=== PATIENT | female | born 2000 | race Caucasian/White ===

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

== ENCOUNTER 2024-02-11 11:18 | Inpatient (IN) ==
--- NOTE | 2024-02-11 12:08 | Emergency Department Note ---
Impression & Plan Suicide attempt by multiple drug overdose, Intentional overdose of selective serotonin reuptake inhibitor (SSRI) ED Provider Note NAME: PEG HUANG AGE: 24 SEX: F : 2000 ARRIVES VIA: Ambulance INFORMANT: Patient, ED PROVIDER(S): Adán Kennedy MD CHIEF COMPLAINT: Intentional overdose HPI: This a 24-year-old female with history of bipolar disorder presenting for intentional overdose. Patient states she got overwhelmed with final/school. She states she took unknown amount of Lexapro, Wellbutrin and drank Visine. She think she may have taken around 20 pills. Unclear whether she means 20 each over 20 in total, she is does not clarify. She is somewhat staring into space at this time. She is maintaining her airway. She states that she felt very impulsive into this. She does not seek inpatient care at this time for psychiatric needs. ROS: See above HPI for pertinent positives & negatives. A total of 10 systems reviewed and were otherwise negative. PAST MEDICAL HISTORY: See Below PAST SURGICAL HISTORY: See Below FAMILY HISTORY: See Below SOCIAL HISTORY: See Below HOME MEDICATIONS: See Below ALLERGIES: See Below VITALS: See Below PHYSICAL EXAMINATION: General: Easily directable Head: Normocephalic and atraumatic Eyes: Normal inspection, extraocular muscles intact Ear, nose, throat: Normal external exam Neck: Normal range of motion Respiratory: lungs clear to auscultation bilaterally Cardiovascular: Regular rate/rhythm, no murmur GI: soft, nontender, no guarding or rebound Extremities: nontender, moves all extremities Neuro: The patient awake and alert, appropriately conversive, no focal deficits, symmetric faces, no hyperreflexia Skin: Warm, dry, and intact MEDICAL DECISION MAKING: This is a 24-year-old female with history of bipolar disorder presenting for intentional overdose. Will observe closely for signs of seizure from Wellbutrin or serotonin syndrome from Lexapro. Will watch closely for advised ingestion as well. -Currently getting blood work, EKG, coingestions -Patient will require involuntary psychiatric admission if she does not voluntarily seek care -Discussed with poison control, patient will require 24-hour observation due to seizure risk of Wellbutrin -CG independently interpreted by me with sinus tachycardia, rate of 142, normal axis, normal TX, normal QRS, normal QTc, no ST segment elevations consistent with STEMI criteria -Patient blood work shows a slight leukocytosis to 13.03 otherwise plate count 570, slightly elevated. No significant other abnormalities. -Patient reassessed, is more diaphoretic but does not have signs of hyperreflexia. Will give IV Valium this time. At this time does not appear consistent with serotonin syndrome overtly. Will continue to watch closely. -Patient required 24+ [facility] Dr. Brush directly Differential diagnosis: Serotonin syndrome, Wellbutrin overdose, seizure, Independent History obtained from: Father Diagnostics interpreted by me: ECG: See above Cardiac Monitoring: An order was placed for continuous cardiac monitoring. The monitor shows a rate of 121 with sinus tachycardia rhythm. Critical Care Note: I have personally spent 35 minutes of critical care time in the direct management of this patient. This includes bedside care, interpretation of diagnostic studies, and testing, discussion with consultants, patient, and family members, and other required patient management activities. This 35 minutes is in excess of all separately billable procedures. Past Med/Surg History Problem List (Updated 02/11/24 @ 14:18 by Adán Kennedy MD) Intentional overdose of selective serotonin reuptake inhibitor (SSRI) (Acute) Suicide attempt by multiple drug overdose (Acute) Acne (Acute) Nausea (Chronic) Panic attacks (Chronic) Surgical History (Updated 12/03/18 @ 15:48 by Anne Ryan) S/P adenoidectomy Family History Grandfather (Paternal) Colorectal cancer Grandfather (Maternal) Factor V Leiden mutation Family/Other Breast cancer MATERNAL GREAT GRANDMOTHER Other Lung cancer Denies family history of Ovarian cancer Uterine cancer Social History (Updated 09/01/20 @ 14:17 by Peggy Gardiner MD) Smoking Status: Never smoker Do You Dip or Chew Tobacco: No; Hx Alcohol Use: No Hx Substance Use: No Preferred Language: Luxembourgish marital status: Single current occupational status: student current occupation: [employer] Feels Safe at Home: Yes Physical Activity Frequency: 3-4 Times per Week Physical Activity Frequency Comment: walks, swims, works as lifegard in summer Allergies Allergies Allergy/AdvReac Type Severity Reaction Status Date / Time No Known Drug Allergies Allergy Verified 02/15/23 13:58 kiwi AdvReac Verified 02/15/23 13:58 pinekathile AdvReac Verified 02/15/23 13:58 Home Meds Home Medications Medication Instructions Recorded Confirmed escitalopram oxalate 10 mg tablet 10 mg PO DAILY 10/21/21 02/15/23 (Lexapro) bupropion HCl [Wellbutrin SR] PO 02/15/23 02/15/23 nitrofurantoin macrocrystal PO UTI 02/15/23 02/15/23 [nitrofurantoin] Previous Rx's Medication Instructions Recorded norethindrone acetate 1.5 1 tab PO DAILY #63 tabs 04/27/23 mg-ethinyl estradiol 30 mcg tablet (Junel) Results & Data (ED) Vital Signs Vital Signs - 24 hr 02/11/24 11:29 02/11/24 11:29 02/11/24 11:29 Temperature 36.8 C 36.8 C Temperature Source Oral Oral Pulse Rate 147 H Pulse Rate [Apical] 147 H Respiratory Rate 19 19 Respiratory Effort / Characteristics Respiratory Depth Blood Pressure 134/79 Blood Pressure [Left Arm] 134/79 Blood Pressure Mean 97 Blood Pressure Mean [Left Arm] 97 Blood Pressure Position [Left Arm] Pulse Oximetry 98 98 98 Oxygen Delivery Method Room Air Room Air Room Air Sepsis Recent Fever Within 48 Hours No Sepsis New/Unexplained Change in Mental Status N/A Sepsis Action Taken by Nursing No Action Required 02/11/24 11:38 02/11/24 12:11 02/11/24 13:13 Temperature Temperature Source Pulse Rate 143 H 124 H Pulse Rate [Apical] 121 H Respiratory Rate 19 16 Respiratory Effort / Characteristics Non-Labored Respiratory Depth Normal Blood Pressure Blood Pressure [Left Arm] 111/71 Blood Pressure Mean Blood Pressure Mean [Left Arm] 84 Blood Pressure Position [Left Arm] Sitting Pulse Oximetry 96 94 Oxygen Delivery Method Room Air Room Air Sepsis Recent Fever Within 48 Hours Sepsis New/Unexplained Change in Mental Status Sepsis Action Taken by Nursing 02/11/24 13:37 Temperature 36.9 C Temperature Source Oral Pulse Rate Pulse Rate [Apical] Respiratory Rate Respiratory Effort / Characteristics Respiratory Depth Blood Pressure Blood Pressure [Left Arm] Blood Pressure Mean Blood Pressure Mean [Left Arm] Blood Pressure Position [Left Arm] Pulse Oximetry Oxygen Delivery Method Sepsis Recent Fever Within 48 Hours Sepsis New/Unexplained Change in Mental Status Sepsis Action Taken by Nursing Laboratory Data 02/11/24 11:34 12/15/24 11:34 Lab Results 02/11/24 02/11/24 Range/Units 11:34 Unknown WBC 13.03 H (4.8-10.8) K/ul RBC 4.75 (4.20-5.40) M/uL Hgb 13.6 (12.0-16.0) g/dl Hct 42.1 (37.0-47.0) % MCV 88.6 (80.0-100.0) fL MCH 28.6 (25.0-34.0) pg MCHC 32.3 (32.0-36.0) g/dL RDW Std Deviation 40.5 (36.4-46.3) fL RDW Coeff of Mahamed 12.3 (11.5-14.5) % Plt Count 578 H (130-400) K/uL MPV 9.4 (9.4-12.4) fL Immature Gran % (Auto) 0.8 % Neut % (Auto) 66.2 % Lymph % (Auto) 27.1 % Coleman % (Auto) 4.8 % Eos % (Auto) 0.8 % Baso % (Auto) 0.3 % Neut # (Auto) 8.63 H (1.40-6.50) K/uL Lymph # (Auto) 3.53 H (1.20-3.40) K/uL Coleman # (Auto) 0.62 H (0.11-0.59) K/uL Eos # (Auto) 0.10 (0.00-0.50) K/uL Baso # (Auto) 0.04 (0.00-0.20) K/uL Immature Gran # (Auto) 0.11 (0.01-0.20) K/uL Sodium 137 (136-145) mmol/L Potassium 3.6 (3.5-5.1) mmol/L Chloride 102 (98-107) mmol/L Carbon Dioxide 19 L (21-32) mmol/L Anion Gap 16 H (3-11) BUN 9 (6-23) mg/dl Creatinine 0.77 (0.6-1.2) mg/dl Est Cr Clr Drug Dosing 165.6 ml/min eGFR 111.09 BUN/Creatinine Ratio 11.7 (10-20) Glucose 166 H (70-99(Fasting)) mg/dl Calcium 9.1 (8.6-10.3) mg/dl Magnesium 2.0 (1.7-2.4) mg/dl Total Bilirubin 0.2 (0.2-1.0) mg/dl AST 15 (13-39) U/L ALT 17 (7-52) U/L Alkaline Phosphatase 83 (34-104) U/L Total Protein 8.2 (6.0-8.3) gm/dl Albumin 4.5 (3.4-5.0) gm/dl Globulin 3.7 (2.5-4.0) gm/dl Albumin/Globulin Ratio 1.2 (0.9-2) Lipase 17 (11-82) U/L HCG, Qual Negative (Negative) Salicylates < 3.0 L (3.0-30) mg/dl Acetaminophen < 3 L (10-30) ug/ml Ethyl Alcohol mg/dL < 10.0 (<10.0) mg/dl SARS-CoV-2, RNA, NAAT NEGATIVE (NEGATIVE) Discharge Plan Visit Data Chief Complaint: Overdose (Intentional) Stated Complaint: OVERDOSE ED Provider: Adán Kennedy Discharge Problem: Suicide attempt by multiple drug overdose, Intentional overdose of selective serotonin reuptake inhibitor (SSRI) Forms Stand Alone Forms: My [facility], Suicide Prevention Resources Prescriptions Prescriptions: No Action norethindrone ac-eth estradiol [June (21)] 1.5-30 mg-mcg tablet 1 tab PO DAILY Qty: 63 3RF escitalopram oxalate [Lexapro] 10 mg tablet 10 mg PO DAILY bupropion HCl [Wellbutrin SR] PO nitrofurantoin macrocrystal [nitrofurantoin] PO Referrals Referrals: Bo Baptiste MD [Outside Practitioners] -
[2024-02-11 12:10] LABS: Basophils # (auto) 0.04 K/uL (0.00-0.20); Basophils % (auto) 0.3 %; Eosinophils % (auto) 0.8 %; Hematocrit (blood only) 42.1 % (37.0-47.0); Hemoglobin 13.6 g/dl (12.0-16.0); Immature Granulocytes # (auto) 0.11 K/uL (0.01-0.20); Immature Granulocytes % (auto) 0.8 %; Lymphocytes # (auto) 3.53 K/uL (1.20-3.40); Lymphocytes % (auto) 27.1 %; Mean Corpuscular Hemoglobin 28.6 pg (25.0-34.0); Mean Corpuscular Hgb Conc 32.3 g/dL (32.0-36.0); Mean Corpuscular Volume 88.6 fL (80.0-100.0); Mean Platelet Volume 9.4 fL (9.4-12.4); Monocytes # (auto) 0.62 K/uL (0.11-0.59); Monocytes % (auto) 4.8 %; Neutrophils # (auto) 8.63 K/uL (1.40-6.50); Neutrophils % (auto) 66.2 %; Platelet Count 578 K/uL (130-400); RDW Coefficient of Variation 12.3 % (11.5-14.5); RDW Standard Deviation 40.5 fL (36.4-46.3); Red Blood Count 4.75 M/uL (4.20-5.40); White Blood Count 13.03 K/ul (4.8-10.8)
[2024-02-11 12:21] LABS: Albumin Level 4.5 gm/dl (3.4-5.0); Bilirubin,Total 0.2 mg/dl (0.2-1.0); Calcium 9.1 mg/dl (8.6-10.3); Potassium 3.6 mmol/L (3.5-5.1)
[2024-02-11 12:27] LABS: Acetaminophen < 3 ug/ml (10-30); Albumin Globulin Ratio 1.2 (0.9-2); BUN Creatinine Ratio 11.7 (10-20); Creatinine Clr Calc Pharmacy 165.6 ml/min; Globulin 3.7 gm/dl (2.5-4.0); Pregnancy Test, Serum Negative (Negative); Salicylate < 3.0 mg/dl (3.0-30); Total Protein 8.2 gm/dl (6.0-8.3)
--- OUTSIDE RECORDS SUMMARY | 2024-02-11 13:52 | External Medical Summary | Summary of Care ---
Author Name Unknown Organization [facility] Address [address] [place] [address] Phone [phone] Care Team Providers Care Supervisor Paper Testing Name Role Phone Gisselle Eng Ana DO Primary Care Provider Encounter Details Date Type Department Care Team (Late st Contact Info) Description 10/02/2023 Orders Only Outcomes Research Department [address] [place] [address] Ana Hicks CHRA [facility] Other*[id number] Allergies Active Allergy Reactions Criticality Noted Date Comments Food (See Comments) 09/15/2016 pineapple Kiwi Extract Other (Please comment) 05/16/2023 Pt reports an itchy sensation in the back of her tongue and mouth documented as of this encounter (statuses as of 10/02/2023) Medications Medication Sig Dispensed Refills Start Date End Date Status XULANE 150-35 MCG/24HR patch 10/13/2017 Active Ketoconazole 2 % External Shampoo (Nizoral)Indication s:Seborrheic dermatitis of scalp Apply to scalp every other day x 1-2 weeks and then 2-3 times per week for maintenance; leave on 3-5 min before rinsing 120 mL 3 03/01/2022 Active Additional Information Patient not taking.Reported on 02/12/2023 Escitalopram Oxalate 20 MG Oral Tablet (Lexapro) Take 1 Tablet by mouth in the morning. 90 Tablet 2 01/16/2023 Active buPROPion HCl ER (XL) 150 MG Oral Tablet Extended Release 24 Hour (Wellbutrin XL)Indications:Mode rate episode of recurrent major depressive disorder (HCC) Take 1 Tablet by mouth in the morning. 90 Tablet 3 02/06/2023 Active Norethindrone Acet-Ethinyl Est 1-20 MG-MCG Oral Tablet (03/18) Take 1 Tablet by mouth in the morning. Active documented as of this encounter (statuses as of 10/02/2023) Active Problems Problem Noted Date Diagnosed Date Non-suicidal self-harm 01/13/2023 Moderate episode of recurrent major depressive d isorder 12/20/2022 JUAN (generalized anxiety disorder) 09/01/2021 documented as of this encounter (statuses as of 10/02/2023) Resolved Problems Problem Noted Date Diagnosed Date Resolved Date Acne vulgaris 09/15/2016 03/06/2020 Overweight, pediatric, BMI 8 5.0-94.9 percentile for age 1012/06/2014 03/06/2020 Obesity, pediatric, BMI 95th to 98th percentile for age 0406/27/2011 12/06/2014 Genu valgum 09/30/2003 03/06/2020 Chronic rhinitis 06/19/2003 03/06/2020 Tibial torsion 01/31/2003 03/06/2020 Umbilical hernia 03/06/2020 documented as of this encounter (statuses as of 10/02/2023) Immunizations Name Administration Dates Next Due DTaP Dipth/Tet/Acell Pertussis (Infanrix), Peds 10/27/2006 H1N1 2009 Influenza, Intranasal 03/12/2009,01/17 HPV Vaccine, 4-Valent 07/16/2013,03/26/2013,12/28 IPV - Polio Virus Vaccine (Inact) 10/27/2006 Influenza, Whole Virus 01/10/2020 MMR - Measles/Mumps/Rubella Vaccine 10/27/2006 Meningococcal Conjugate Vacc ine (Menactra/Menveo) 12/21/2017,01/11/2013 Seasonal Influenza Intranasal 03/08/2013 ,11/25/2011,12/24/2010,12/18 Seasonal Influenza Virus Vac cine, Unspecified Formulation 01/10/2020 Seasonal Influenza, PF, 6 M & above, IM , (FluLaval or Fluzone) 01/11/2021,12/19/2018,12/21/2017,12/14 Seasonal Influenza, Quad, Na omi (Flumist) 12/03/2014 Seasonal Influenza, Quadriva lent, No Preserve, IM 12/09/2015 Seasonal Influenza, Split, I IV3, With Preserve, Inj 12/15/2008,12/05/2007,01/01/2007,01/12 TDAP (age 10 and older)(Boostrix) 02/13/2019 TDAP, Age 7 and older, IM (Adacel) 07/03/2012 Varicella Vaccine (Chicken Pox) 10/27/2006 documented as of this encounter Social History Tobacco Use Types Packs/Day Years Used Date Smoking Tobacco: Never Smokeless Tobacco: Never Alcohol Use Standard Drinks/Week Comments No 0 (1 standard drink = 0.6 oz pur e alcohol) PHQ-2 Answer Date Recorded PHQ Adult Total Score 9 07/22/2020 [facility] - Occupational Stress Questionnaire Answer Date Recorded Do you feel stress - tense, restless, nervous, or anxious, or unable to sleep at night because your mind is troubled all the time - these days? Rather much 03/06/2020 Exercise Vital Sign Answer Date Recorde d On average, how many days pe r week do you engage in moderate to strenuous exercise (like a brisk walk)? 5 days 03/06/2020 On average, how many minutes do you engage in exercise at this level? 60 min 03/06/2020 Hunger Vital Sign Answer Date Recorded Within the past 12 months, y ou worried that your food would run out before you got the money to buy more. Never true 01/13/20 23 Within the past 12 months, t he food you bought just didn't last and you didn't have money to get more. Never true 01/12/2023 Childcare Answer Date Recorded Do you feel overwhelmed with taking care of a child, family member or friend? No 01/12/2023 Does your family need help f inding childcare? (Household - for ages 0-17 years) Not on file 01/12/2023 Clothing Answer Date Recorded Have you been unable to get clothing when it was really needed? Yes 01/12/2023 Is your family able to get c lothes or diapers when needed? (Household - for ages 0-17 years) Not on file 01/12/2023 Personal Safety Answer Date Recorded Do you feel unsafe or have concerns for your saf ety? No 01/12/2023 Do you have concerns for you r family's safety? (Household - for ages 0-17 years) Not on file 01/12/2023 Utilities Answer Date Recorded Do you have trouble paying y our heating, water, or electric bill? No 01/12/2023 Is your family able to pay t he heat, water, or electric bill? (Household - for ages 0-17 years) Not on file 01/12/2023 Does your family have access to good internet? (Household - for ages 0-17 years) Not on file 01/12/2023 Employment Status Answer Date Recorded Are you unemployed or without regular income? No 01/12/2023 Does the household have a re gular source of income? (Household - for ages 0-17 years) Not on file 01/12/2023 Social Connections Answer Date Recorded How often do you feel lonely or isolated from th ose around you? Often 01/12/2023 Financial Resource Strain Answer Date R ecorded Do you have any trouble payi ng for your medications, or do you think you might in the future? No 01/12/2023 Does your family have troubl e paying for medicine? (Household - for ages 0-17 years) Not on file 01/12/2023 Transportation Needs Answer Date Record ed READ ONLY Do you have troubl e getting a ride to medical visits or work? Sometimes True 01/12/2023 Does your family have a hard time getting a ride to doctors visits? (Household - for ages 0-17 years) Not on file 01/12/2023 Has lack of transportation k ept you from medical appointments, meetings, work, or from getting things needed for daily living? Check all that apply. (Adult - for ages 18 years and over) Not on file 01/12/2023 Do you (or your family) have trouble finding or paying for a ride (transportation)? (Household - for ages 0-17 years) Not on file 01/12/2023 Housing Stability Answer Date Recorded Do you currently live in a s helter or have no steady place to sleep at night? Yes 01/12/2023 READ ONLY Do you think you a re at risk of becoming homeless? No 01/12/2023 Does your family worry about paying for your home or becoming homeless? (Household - for ages 0-17 years) Not on file 1 03/14/2022 Are you homeless or worried that you might be in the future? (Adult - for ages 18 years and over) Not on file Are you (or your family) ya eless or worried that you might be in the future? (Household - for ages 0-17 years) Not on file Food Insecurity Answer Date Recorded Do you need food for this week? No 01/12/2023 Are you able to get enough f ood for your family? (Household - for ages 0-17 years) Not on file 01/12/2023 Does your family need food t his week? (Household - for ages 0-17 years) Not on file 01/12/2023 Do you always have enough fo od for your family? (Household - for ages 0-17 years) Not on file 01/12/2023 Sex and Gender Information Value Date Recorded Sex Assigned at Female 01/12/2023 2:35 AM EST Gender Identity Female 01/12/2023 2:35 AM EST Sexual Orientation Straight 01/12/2023 2: 35 AM EST Job Start Date Occupation Industry Not on file Not on file Not on file documented as of this encounter Plan of Treatment Upcoming Encounters Date Type Department Care Team (Late st Contact Info) Description 11/02/2023 2:15 PM EDT Office Visit Dermatology [facility] [place] [address] [facility] [place] [address] Marco Antonio Velasquez MD [address] [facility] [place] [address] Scheduled Orders Name Type Priority Associated Diagnoses Orde r Schedule MYCODE SUBSEQUENT ADULT Lab Routine [facility] Research Other*[id number] Every 6 Months for 2 Occurrences starting 10/02/2023 until 10/21/2024 Health Maintenance Due Date Last Done Comments HIV Screening 01/29/2016 Hepatitis C Screening 2019 Depression Monitoring 07/22/2021 07/22/2020 Pap Smear 2022 Gonorrhea / Chlamydia Screen 05/04/2022 05/04/2021, 09/01/2020 COVID-19 Vaccine ( season) 2022 12/01/2021, 02/13/2021, 07/29/2020, Additional history exists Influenza Vaccine (FLU shot) (#1) 2023 12/14/2022, 01/11/2021, 01/10/2020, Additional history exists DTaP,Tdap,and Td Vaccines (8 - Td or Tdap) 02/13/2029 02/13/2019, 07/03/2012, 10/27/2006, Additional history exists Hepatitis B Vaccine Completed 05/10/2002, 2001, 2001 HPV (Gardasil) Vaccine Completed 4, 03/26/2013, 01/11/2013 MENINGOCOCCAL (MENACTRA/MENVEO) Completed 12/21/2017, 01/11/2013 Pneumococcal Vaccine: Pediatrics (0 to 5 Years) and At-Risk Patients (6 to 64 Years) Aged Out No longer eligible based on patient's age to complete this topic documented as of this encounter Medical Devices Not on filedocumented as of this encounter Visit Diagnoses Diagnosis [facility] Other*[id number] documented in this encounter Care Teams Supervisor Paper Testing Relationship Specialty Start Date End Date Gisselle Eng DO [address] [place] [address] PCP - General Family Medicine 03/06/20 documented as of this encounter
--- OUTSIDE RECORDS SUMMARY | 2024-02-11 13:52 | External Medical Summary | Summary of Care ---
Author Name Unknown Organization [facility] Address [address] [place] [address] Phone [phone] Care Team Providers Care Carrot Tier Name Role Phone Deric Eng DO Primary Care Provider Reason for Visit * Reason Comments Follow Up Pt here for f/u of H ypertrophic scars, ILK. No new concerns at this time. Encounter Details Date Type Department Care Team (Late st Contact Info) Description 11/30/2023 10:30 AM EDT Office Visit Dermatology [facility] [address] [place] [address] Marco Antonio Velasquez MD [address] [place] [address] Keloid*; Scar Allergies Active Allergy Reactions Criticality Noted Date Comments Food (See Comments) 09/15/2016 pineapple Kiwi Extract Other (Please comment) 05/16/2023 Pt reports an itchy sensation in the back of her tongue and mouth documented as of this encounter (statuses as of 11/30/2023) Medications Medication Sig Dispensed Refills Start Date End Date Status XULANE 150-35 MCG/24HR patch 10/13/2017 Active Ketoconazole 2 % External Shampoo (Nizoral)Indication s:Seborrheic dermatitis of scalp Apply to scalp every other day x 1-2 weeks and then 2-3 times per week for maintenance; leave on 3-5 min before rinsing 120 mL 3 03/01/2022 Active Additional Information Patient not taking.Reported on 02/12/2023 buPROPion HCl ER (XL) 150 MG Oral Tablet Extended Release 24 Hour (Wellbutrin XL)Indications:Mode rate episode of recurrent major depressive disorder (HCC) Take 1 Tablet by mouth in the morning. 90 Tablet 3 02/06/2023 Active Norethindrone Acet-Ethinyl Est 1-20 MG-MCG Oral Tablet (June03/18) Take 1 Tablet by mouth in the morning. Active Escitalopram Oxalate 20 MG Oral Tablet (Lexapro) TAKE 1 TABLET BY MOUTH EVERY DAY IN THE MORNING 30 Tablet 5 10/12/2023 Active Hospital, Clinic, or Other Facility Administered Medication Ordered Dose Route Frequency Start Date End Date Status Triamcinolone Acetonide (Kenalog) 10 MG/ML inj 10 mgIndications:Scar 10 mg LS ONCE 11/30/2023 11/30/2023 Ended documented as of this encounter (statuses as of 11/30/2023) Active Problems Problem Noted Date Diagnosed Date Non-suicidal self-harm 01/13/2023 Moderate episode of recurrent major depressive d isorder 12/20/2022 JUAN (generalized anxiety disorder) 09/01/2021 documented as of this encounter (statuses as of 11/30/2023) Resolved Problems Problem Noted Date Diagnosed Date Resolved Date Acne vulgaris 09/15/2016 03/06/2020 Overweight, pediatric, BMI 8 5.0-94.9 percentile for age 1012/06/2014 03/06/2020 Obesity, pediatric, BMI 95th to 98th percentile for age 0406/27/2011 12/06/2014 Genu valgum 09/30/2003 03/06/2020 Chronic rhinitis 06/19/2003 03/06/2020 Tibial torsion 01/31/2003 03/06/2020 Umbilical hernia 03/06/2020 documented as of this encounter (statuses as of 11/30/2023) Immunizations Name Administration Dates Next Due DTaP Dipth/Tet/Acell Pertussis (Infanrix), Peds 10/27/2006,08/13/2002,2001,05/23,2001 H1N1 2009 Influenza, Intranasal 03/12/2009,01/17 HIB Hep B - HIB Hepatitis B (Comvax) 05/10/2002, 2001 HIB PRP-T, 4 Dose, PF, IM (H iberix, ActHib) 2001 HPV Vaccine, 4-Valent 07/16/2013,03/26/2013,12/28 Hepatitis B, 0-19 yrs 2001 IPV - Polio Virus Vaccine (Inact) 2006,08/13/2002,2001,03/26 Influenza Vaccine, Live, Int ranasal, Trivalent (Flumist) 03/08/2013,11/25/2011,12/24/2010,12/18 Influenza, Whole Virus 01/10/2020 MMR - Measles/Mumps/Rubella Vaccine 10/27/2006,1 2001 Meningococcal Conjugate Vacc ine (Menactra/Menveo) 12/21/2017,01/11/2013 Pneumococcal Conjugate Vacci ne, 7 Valent 2001,2001,2001 Seasonal Influenza Vac., MDV , IM, 0.5 mL (Fluzone) 12/15/2008,12/05/2007,01/01/2007,01/12,12/31/2004 Seasonal Influenza Virus Vac cine, Unspecified Formulation 01/10/2020 Seasonal Influenza, PF, 6 M & above, IM , (FluLaval or Fluzone) 01/11/2021,12/19/2018,12/21/2017,12/14 Seasonal Influenza, Quad, Na omi (Flumist) 12/03/2014 Seasonal Influenza, Quadriva lent, No Preserve, IM 12/09/2015 Seasonal Influenza, Trivalen t, (IIV3), PF, (Fluzone) 12/03/2002,02/01/2002,2001 TDAP (age 10 and older)(Boostrix) 02/13/2019 TDAP, Age 7 and older, IM (Adacel) 07/03/2012 Varicella Vaccine (Chicken Pox) 10/27/2006,02/01 documented as of this encounter Social History Tobacco Use Types Packs/Day Years Used Date Smoking Tobacco: Never Smokeless Tobacco: Never Alcohol Use Standard Drinks/Week Comments No 0 (1 standard drink = 0.6 oz pur e alcohol) PHQ-2 Answer Date Recorded PHQ Adult Total Score 9 07/22/2020 [facility] - Occupational Stress Questionnaire Answer [...] on file documented as of this encounter Progress Notes * Marco Antonio Velasquez MD - 11/30/2023 10:34 AM EDT SUBJECTIVE: Chief Complaint: Chief Complaint Patient presents with Follow Up Pt here for f/u of Hypertrophic scars, ILK. No new concerns at this time. HPI: Arely Worthington is a 23 year old female seen for follow up of keloids. Had good improvement with ILK/PDL OBJECTIVE: GEN: Healthy, alert, no distress, appears oriented, pleasant, and cooperative SKIN: Problem focused exam reveals: Left forearm with approximately 6 linear pink/purple plaques/scars, only 3 are firm ASSESSMENT/PLAN: Hypertrophic scars - here for ILK and PDL Scar treatment Pulse dye laser treatment 595nm today Plan: Pulse dye laser was determined to be the best method for treatment. The procedure, risks, benefits, alternatives and expected outcomes were discussed with the patient and verbal consent was obtained. Time out called. Patient identified, procedure verified, site identified and verified. Patient and staff present in agreement. Eye protection placed. Laser surgery was performed with 595nm PDL using 7mm spot size with 1.5ms pulse width and 7 Joules of energy (no charge for laser, will charge for 6 injections) Procedure - Kenalog Injection -Triamcinolone 10 mg/ml injected intralesionally, total volume injected: 1mL -Patient name and MRN verified. Time out called. Area cleaned with alcohol. Injected lesion with triamcinolone using 30 gauge needle. Patient tolerated procedure well. F/U - PRN Marco Antonio Velasquez MD Ref: SELF[[id number]] NO STRE[address] ADDRESS AVAILABLE None (office) None (fax) PCP: DERIC ENG [address] [place] [address] [phone] documented in this encounter Nursing Notes * Alyx Monreal CMA - 11/30/2023 10:27 AM EDT Chief Complaint Patient presents with Follow Up Pt here for f/u of Hypertrophic scars, ILK. No new concerns at this time. documented in this encounter Plan of Treatment Health Maintenance Due Date Last Done Comments HIV Screening 01/29/2016 Hepatitis C Screening 2019 Depression Monitoring 07/22/2021 07/22/2020 Pap Smear 2022 Gonorrhea / Chlamydia Screen 05/04/2022 05/04/2021, 09/01/2020 COVID-19 Vaccine ( season) 2023 12/01/2021, 02/13/2021, 07/29/2020, Additional history exists Influenza Vaccine (FLU shot) (#1) 2023 12/14/2022, 01/11/2021, 01/10/2020, Additional history exists DTap/Tdap Vaccines (8 - Td or Tdap) 02/13/2029 [...] as of this encounter Visit Diagnoses Diagnosis Keloid- Primary Keloid scar Scar Scar condition and fibrosis of skin documented in this encounter Administered Medications Inactive Administered Medications - up to 3 most recent administrations Medication Order MAR Action Action Date Dose Rate Site Triamcinolone Acetonide (Kenalog) 10 MG/ML inj 10 mg 10 mg, Intralesional, ONCE, On [place] 11/30/23 at 1145, For 1 dose Given 11/30/2023 11:12 AM EDT 10 mg Other-Specify documented in this encounter Care Teams Carrot Tier Relationship Specialty Start Date End Date Deric Eng DO [address] [place] [address] PCP - General Family Medicine 03/06/20 documented as of this encounter
--- OUTSIDE RECORDS SUMMARY | 2024-02-11 13:52 | External Medical Summary | Summary of Care ---
Author Name Unknown Organization [facility] Address [address] [place] [address] Phone [phone] Care Team Providers Care Financial Operations Analyst Name Role Phone Deric Eng DO Primary Care Provider Reason for Visit * Reason Comments Follow Up Hypertrophic scars, 4-6 weeks Encounter Details Date Type Department Care Team (Late st Contact Info) Description 09/25/2023 11:45 AM EDT Office Visit Dermatology [facility] [address] [facility] [place] [address] Marco Antonio Velasquez MD [address] [place] [address] Keloid*; Scar Allergies Active Allergy Reactions Criticality Noted Date Comments Food (See Comments) 09/15/2016 pineapple Kiwi Extract Other (Please comment) 05/16/2023 Pt reports an itchy sensation in the back of her tongue and mouth documented as of this encounter (statuses as of 09/26/2023) Medications Medication Sig Dispensed Refills Start Date [...] Tablet by mouth in the morning. Active Hospital, Clinic, or Other Facility Administered Medication Ordered Dose Route Frequency Start Date End Date Status Triamcinolone Acetonide (Kenalog) 10 MG/ML inj 15 mgIndications:Keloid,Scar 15 mg LS ONCE 09/25/2023 09/25/2023 Ended documented as of this encounter (statuses as of 09/26/2023) Active Problems Problem Noted Date Diagnosed Date Non-suicidal self-harm 01/13/2023 Moderate episode of recurrent major depressive d isorder 12/20/2022 JUAN (generalized anxiety disorder) 09/01/2021 documented as of this encounter (statuses as of 09/26/2023) Resolved Problems Problem Noted Date Diagnosed Date Resolved Date Acne vulgaris 09/15/2016 03/06/2020 Overweight, pediatric, BMI 8 5.0-94.9 percentile for age 1012/06/2014 03/06/2020 Obesity, pediatric, BMI 95th to 98th percentile for age 0406/27/2011 12/06/2014 Genu valgum 09/30/2003 03/06/2020 Chronic rhinitis 06/19/2003 03/06/2020 Tibial torsion 01/31/2003 03/06/2020 Umbilical hernia 03/06/2020 documented as of this encounter (statuses as of 09/26/2023) Immunizations Name Administration Dates Next Due DTaP [...] Recorded PHQ Adult Total Score 9 07/22/2020 [facility] - Occupational Stress Questionnaire [...] 01/12/2023 Does the household have a re lar source of income? (Household - for ages [...] Notes * Marco Antonio Velasquez MD - 09/25/2023 11:45 AM EDT SUBJECTIVE: Chief Complaint: Chief Complaint Patient presents with Follow Up Hypertrophic scars, 4-6 weeks HPI: Arely Worthington is a 23 year old female seen for follow up keloids. Having improvement with ILK/PDL OBJECTIVE: GEN: Healthy, alert, no distress, appears oriented, pleasant, and cooperative SKIN: Problem focused exam reveals: Left forearm with approximately 6 linear pink/purple plaques/scars ASSESSMENT/PLAN: Hypertrophic scars - here for ILK [...] 10 mg/ml injected intralesionally, total volume injected: 1.5mL -Patient name and MRN verified. Time out called. Area cleaned with alcohol. Injected lesion with triamcinolone using 30 gauge needle. Patient tolerated procedure well. She felt a little faint, but recovered with some apple juice -Schedule for repeat injection in 4-6 weeks. Marco Antonio Velasquez MD Ref: SELF[[id number]] NO STRE[address] ADDRESS AVAILABLE None (office) None (fax) PCP: DERIC ENG [address] [place] [address], [place] [id number] documented in this encounter Nursing Notes * Rosemarie Trejo LPN - 09/25/2023 11:40 AM EDT Patient identified by full name and date of . Chief Complaint Patient presents with Follow Up Hypertrophic scars, 4-6 weeks documented in this encounter Plan of Treatment Upcoming Encounters Date Type Department Care Team (Late st Contact Info) Description 11/02/2023 2:15 PM EDT Office Visit [facility]atology [facility] [address] [place] [address] Marco Antonio Velasquez MD [address] [facility] [place] [address] Health Maintenance Due Date Last Done Comments [...] Site Triamcinolone Acetonide (Kenalog) 10 MG/ML inj 15 mg 15 mg, Intralesional, ONCE, On 09/25/23 at 1215, For 1 dose Given 09/25/2023 11:51 AM EDT 15 mg documented in this encounter Care Teams Financial Operations Analyst Relationship Specialty Start Date End Date Deric nEg DO [address] [place] [address] PCP - General Family Medicine 03/06/20 documented as of this encounter
--- OUTSIDE RECORDS SUMMARY | 2024-02-11 13:52 | External Medical Summary | Summary of Care ---
Author Name Unknown Organization [facility] Address [address] [place] [address] Phone [phone] Care Team Providers Care Qualification Engineer Name Role Phone Deric Eng DO Primary Care Provider Reason for Visit * Reason Comments Follow Up Follow up for hypert rophic scars Encounter Details Date Type Department Care Team (Late st Contact Info) Description 08/17/2023 11:45 AM EDT Office Visit Dermatology [facility] [address] [facility] [place] [address] Marco Antonio Velasquez MD [address] [place] [address] Scar*; Keloid Allergies Active Allergy Reactions Criticality Noted Date Comments Food (See Comments) 09/15/2016 pineapple Kiwi Extract Other (Please comment) 05/16/2023 Pt reports an itchy sensation in the back of her tongue and mouth documented as of this encounter (statuses as of 08/17/2023) Medications Medication Sig Dispensed Refills Start Date End Date Status XULANE 150-35 MCG/24HR patch 10/13/2017 Active Ketoconazole 2 % External Shampoo (Nizoral)Indicat ions:Seborrheic dermatitis of scalp Apply to scalp every [...] Oral Tablet Extended Release 24 Hour (Wellbutrin XL)Indications:M oderate episode of recurrent major depressive disorder (HCC) Take 1 Tablet by mouth in the morning. 90 Tablet 3 02/06/2023 Active Norethindrone Acet-Ethinyl Est 1-20 MG-MCG Oral Tablet (03/18) Take 1 Tablet by mouth in the morning. Active Calcium 280 MG Oral Tablet Take by mouth. 08/17/2023 Discontin ue d(Medicatio n List Clean Up) Hospital, Clinic, or Other Facility Administered Medication Ordered Dose Route Frequency Start Date End Date Status Triamcinolone Acetonide (Kenalog) 10 MG/ML inj 20 mgIndications:Scar,Keloid 20 mg LS ONCE 08/17/2023 08/17/2023 Ended documented as of this encounter (statuses as of 08/17/2023) Active Problems Problem Noted Date Diagnosed Date Non-suicidal self-harm 01/13/2023 Moderate episode of recurrent major depressive d isorder 12/20/2022 JUAN (generalized anxiety disorder) 09/01/2021 documented as of this encounter (statuses as of 08/17/2023) Resolved Problems Problem Noted Date Diagnosed Date Resolved Date Acne vulgaris 09/15/2016 03/06/2020 Overweight, pediatric, BMI 8 5.0-94.9 percentile for age 1012/06/2014 03/06/2020 Obesity, pediatric, BMI 95th to 98th percentile for age 0406/27/2011 12/06/2014 Genu valgum 09/30/2003 03/06/2020 Chronic rhinitis 06/19/2003 03/06/2020 Tibial torsion 01/31/2003 03/06/2020 Umbilical hernia 03/06/2020 documented as of this encounter (statuses as of 08/17/2023) Immunizations Name Administration Dates Next Due DTaP Dipth/Tet/Acell Pertussis (Infanrix), Peds 10/27/2006,08/13/2002,2001,05/23,2001 H1N1 2009 Influenza, Intranasal 03/12/2009,01/17 HIB Hep B - HIB Hepatitis B (Comvax) 05/10/2002, 2001 HIB PRP-T, 4 Dose, PF, IM (Hiberix) 2001 HPV Vaccine, 4-Valent 07/16/2013,03/26/2013,12/28 Hepatitis B, 0-19 yrs 2001 IPV - Polio Virus Vaccine (Inact) 2006,08/13/2002,2001,03/26 Influenza, Whole Virus 01/10/2020 MMR - Measles/Mumps/Rubella Vaccine 10/27/2006,1 2001 Meningococcal Conjugate Vacc ine (Menactra/Menveo) 12/21/2017,01/11/2013 Pneumococcal Conjugate Vacci ne, 7 Valent 2001,2001,2001 Seasonal Influenza Intranasal 03/08/2013 ,11/25/2011,12/24/2010,12/18 Seasonal Influenza Virus Vac cine, Unspecified Formulation 01/10/2020 Seasonal Influenza, PF, 6 M & above, IM , (FluLaval or Fluzone) 01/11/2021,12/19/2018,12/21/2017,12/14 Seasonal Influenza, Quad, Na omi (Flumist) 12/03/2014 Seasonal Influenza, Quadriva lent, No Preserve, IM 12/09/2015 Seasonal Influenza, Split, I IV3, No Preserve, Inj 12/03/2002,02/01/2002,2001 Seasonal Influenza, Split, I IV3, With Preserve, Inj 12/15/2008,12/05/2007,01/01/2007,01/12,12/31/2004 TDAP (age 10 and older)(Boostrix) 02/13/2019 TDAP, [...] Recorded PHQ Adult Total Score 9 07/22/2020 [facility] - Occupational Stress Questionnaire Answer Date Recorded [...] Notes * Marco Antonio Velasquez MD - 08/17/2023 11:50 AM EDT SUBJECTIVE: Chief Complaint: Chief Complaint Patient presents with Follow Up Follow up for hypertrophic scars HPI: Arely Worthington is a 23 year old female seen for follow up keloids. Having some improvement with ILK/PDL OBJECTIVE: GEN: Healthy, alert, [...] 595nm PDL using 7mm spot size with 0.45ms pulse width and 5 Joules of energy (no charge for laser, will chargefor 6 injections) Procedure - Kenalog Injection -Triamcinolone 10 mg/ml injected intralesionally, total volume injected: 1.5mL -Patient name and MRN verified. Time out called. Area cleaned with alcohol. Injected lesion with triamcinolone using 30 gauge needle. Patient tolerated procedure well. She felt a little faint, but recovered with some apple juice -Schedule for repeat injection in 4-6 weeks. Marco Antonio Velasquez MD Ref: SELF[[id number]] NO STRE[address] ADDRESS AVAILABLE None (office) None (fax) PCP: DERIC ENG [address] [facility] [place] [address] [phone] documented in this encounter Nursing Notes * Batsheva Oliveros LPN - 08/17/2023 11:45 AM EDT Patient identified by name and date of . Do you have any concerns about pain management for today's visit? No Living Will or Advance Directive for Health Care as noted on problem list. [employer] is a way you can talk to your provider online through e-mail. Would you like to sign up? I can activate it for you? ALREADY ACTIVE Chief Complaint Patient presents with Follow Up Follow up for hypertrophic scars documented in this encounter Plan of Treatment Upcoming Encounters Date Type Department Care Team (Late st Contact Info) Description 09/25/2023 11:45 AM EDT Office Visit Dermatology [facility] [place] [address] [place] [address] Marco Antonio Velasquez MD [address] [facility] [place] [address] Health Maintenance Due Date Last Done Comments HIV Screening 01/29/2016 Hepatitis C Screening 2019 Depression Monitoring 07/22/2021 07/22/2020 Pap Smear 2022 Gonorrhea / Chlamydia Screen 05/04/2022 05/04/2021, 09/01/2020 COVID-19 Vaccine (2022-24 season) 2022 DTaP,Tdap,and Td Vaccines (8 - Td or Tdap) 02/13/2029 02/13/2019, 07/03/2012, 10/27/2006, Additional history exists Hepatitis B Completed 05/10/2002, 02/28, 2001 GARDASIL-HPV IMMUNIZATION SERIES Completed 07/16/2013, 03/26/2013, 01/11/2013 MENINGOCOCCAL (MENACTRA/MENVEO) Completed 12/21/2017, 01/11/2013 Influenza Vaccine (FLU shot) Completed , 01/11/2021, 01/10/2020, Additional history exists Pneumococcal Vaccine: Pediatrics (0 to 5 Years) and At-Risk Patients (6 to 64 Years) Aged Out No longer eligible based on patient's age to complete this topic documented as of this encounter Medical Devices Not on filedocumented as of this encounter Visit Diagnoses Diagnosis Scar- Primary Scar condition and fibrosis of skin Keloid Keloid scar documented in this encounter Administered Medications Inactive Administered Medications - up to 3 most recent administrations Medication Order MAR Action Action Date Dose Rate Site Triamcinolone Acetonide (Kenalog) 10 MG/ML inj 20 mg 20 mg, Intralesional, ONCE, On [place] 08/17/23 at 1315, For 1 dose Given 08/17/2023 12:44 PM EDT 20 mg Other-Specify documented in this encounter Care Teams Qualification Engineer Relationship Specialty Start Date End Date Deric Eng DO [address] [place] [address] PCP - General Family Medicine 03/06/20 documented as of this encounter
--- OUTSIDE RECORDS SUMMARY | 2024-02-11 13:52 | External Medical Summary | Summary of Care ---
Author Name Unknown Organization [facility] Address [address] [place] [address] Phone [phone] Care Team Providers Care Psych Tech Name Role Phone Gisselle Eng Primary Care Provider Reason for Visit * Reason Comments eRx-Medication Refill Encounter Details Date Type Department Care Team (Late st Contact Info) Description 10/11/2023 Refill Family Practice [facility] [address] [place] [id number] Vonda Wheeler DO [address] [facility] [place] [id number] Allergies Active Allergy Reactions Criticality Noted Date Comments Food (See Comments) 09/15/2016 pineapple Kiwi Extract Other (Please comment) 05/16/2023 Pt reports an itchy sensation in the back of her tongue and mouth documented as of this encounter (statuses as of 10/12/2023) Medications Medication Sig Dispensed Refills Start Date [...] THE MORNING 30 Tablet 5 10/12/2023 Active Escitalopram Oxalate 20 MG Oral Tablet (Lexapro) Take 1 Tablet by mouth in the morning. 90 Tablet 2 01/16/2023 Discontinued documented as of this encounter (statuses as of 10/12/2023) Active Problems Problem Noted Date Diagnosed Date Non-suicidal self-harm 01/13/2023 Moderate episode of recurrent major depressive d isorder 12/20/2022 JUAN (generalized anxiety disorder) 09/01/2021 documented as of this encounter (statuses as of 10/12/2023) Resolved Problems Problem Noted Date Diagnosed Date Resolved Date Acne vulgaris 09/15/2016 03/06/2020 Overweight, pediatric, BMI 8 5.0-94.9 percentile for age 1012/06/2014 03/06/2020 Obesity, pediatric, BMI 95th to 98th percentile for age 0406/27/2011 12/06/2014 Genu valgum 09/30/2003 03/06/2020 Chronic rhinitis 06/19/2003 03/06/2020 Tibial torsion 01/31/2003 03/06/2020 Umbilical hernia 03/06/2020 documented as of this encounter (statuses as of 10/12/2023) Immunizations Name Administration Dates Next Due DTaP [...] Recorded PHQ Adult Total Score 9 07/22/2020 [facility] - Occupational Stress Questionnaire Answer [...] No 01/12/2023 Does the household have a karmanos cancer centerr source of income? (Household - for ages [...] on file documented as of this encounter Miscellaneous Notes * Telephone Encounter - Amisha Coles RPh - 10/12/2023 2:07 PM EDTSigned Prescriptions: Disp Refills Escitalopram Oxalate 20 MG Oral Tablet (Le*30 Tab*5 Sig: TAKE 1TABLET BY MOUTH EVERY DAY IN THE MORNINGAuthorizing Provider: VONDA WHEELER User: AMISHA COLES documented in this encounter Plan of Treatment Upcoming Encounters Date Type Department Care Team (Late st Contact Info) Description 11/02/2023 2:15 PM EDT Office Visit [facility]atology [facility] [address] [facility] [place], [place] [address] Marco Antonio Velasquez MD [address] [facility] [place], [place] [address] Health Maintenance Due Date Last Done Comments [...] Not on filedocumented as of this encounter Care Teams Psych Tech Relationship Specialty Start Date End Date Gisselle Eng DO [address] [facility] [place], [place] [address] PCP - General Family Medicine 03/06/20 documented as of this encounter
--- OUTSIDE RECORDS SUMMARY | 2024-02-11 13:52 | External Medical Summary | Summary of Care ---
Author Name Unknown Organization [facility] Address [address] [place] [address] Phone [phone] Care Team Providers Care Superintendent Meters Name Role Phone Deric Eng DO Primary Care Provider Reason for Visit * Reason Comments Follow Up Hypertrophic scars, 4-6 weeks Encounter Details Date Type Department Care Team (Late st Contact Info) Description 09/25/2023 11:45 AM EDT Office Visit Dermatology [facility] [address] [facility] [place] [address] Marco Antonio Velasquez MD [address] [place] [address] Keloid*; Scar Allergies Active Allergy Reactions Criticality Noted Date Comments Food (See Comments) 09/15/2016 pineapple Kiwi Extract Other (Please comment) 05/16/2023 Pt reports an itchy sensation in the back of her tongue and mouth documented as of this encounter (statuses as of 09/25/2023) Medications Medication Sig Dispensed Refills Start Date [...] as of this encounter (statuses as of 09/25/2023) Active Problems Problem Noted Date Diagnosed Date Non-suicidal self-harm 01/13/2023 Moderate episode of recurrent major depressive d isorder 12/20/2022 JUAN (generalized anxiety disorder) 09/01/2021 documented as of this encounter (statuses as of 09/25/2023) Resolved Problems Problem Noted Date Diagnosed Date Resolved Date Acne vulgaris 09/15/2016 03/06/2020 Overweight, pediatric, BMI 8 5.0-94.9 percentile for age 1012/06/2014 03/06/2020 Obesity, pediatric, BMI 95th to 98th percentile for age 0406/27/2011 12/06/2014 Genu valgum 09/30/2003 03/06/2020 Chronic rhinitis 06/19/2003 03/06/2020 Tibial torsion 01/31/2003 03/06/2020 Umbilical hernia 03/06/2020 documented as of this encounter (statuses as of 09/25/2023) Immunizations Name Administration Dates Next Due DTaP [...] Recorded PHQ Adult Total Score 9 07/22/2020 [facility] - [facility]ational Stress Questionnaire [...] 4-6 weeks. Marco Antonio Velasquez MD Ref: SELF[[id number]] [address] ADDRESS AVAILABLE None (office) None (fax) PCP: DERIC ENG [address] [place] [address], [place] [id number] documented in this encounter Nursing Notes * [...] State Mandeep Dawn [address] [place] [address] Marco Antonio Velasquez MD 200 [facility] [place] [address] Health Maintenance Due Date Last Done Comments [...] mg documented in this encounter Care Teams Superintendent Meters Relationship Specialty Start Date End Date Deric Eng DO [address] [place] [address] PCP - General Family Medicine 03/06/20 documented as of this encounter
--- OUTSIDE RECORDS SUMMARY | 2024-02-11 13:52 | External Medical Summary | Summary of Care ---
Author Name Unknown Organization [facility] Address [address] [place] [address] Phone [phone] Care Team Providers Care Expander Name Role Phone Deric Eng DO Primary Care Provider Reason for Visit * Reason Comments Follow Up Pt here for f/u of H ypertrophic scars, ILK. No new concerns at this time. Encounter Details Date Type Department Care Team (Late st Contact Info) Description 11/30/2023 10:30 AM EDT Office Visit Dermatology [facility] [address] [place] [address] Marco Antonio Velasquez MD [address] [place] [address] Keloid*; Scar Allergies Active Allergy Reactions Criticality [...] Recorded PHQ Adult Total Score 9 07/22/2020 [facility] - Occupational Stress Questionnaire Answer [...] - PRN Marco Antonio Velasquez MD Ref: SELF[[id number]] [address] ADDRESS AVAILABLE None (office) None (fax) PCP: DERIC ENG [address] [place] [address] [phone] documented in this encounter Nursing Notes * [...] Other-Specify documented in this encounter Care Teams Expander Relationship Specialty Start Date End Date Deric Eng DO [address] [place] [address] PCP - General Family Medicine 03/06/20 documented as of this encounter
--- OUTSIDE RECORDS SUMMARY | 2024-02-11 13:53 | External Medical Summary | Summary of Care ---
Author Name Unknown Organization [facility] Address [address] [place] [address] Phone [phone] Care Team Providers Care Mice Raiser Name Role Phone Deric Eng DO Primary Care Provider Reason for Visit * Reason Comments Follow Up Follow up for hypert rophic scars Encounter Details Date Type Department Care Team (Late st Contact Info) Description 08/17/2023 11:45 AM EDT Office Visit Dermatology [facility] 200 [facility] [place] [address] Marco Antonio Velasquez MD 200 [place] [address] Scar*; Keloid Allergies Active Allergy Reactions Criticality [...] Recorded PHQ Adult Total Score 9 07/22/2020 [facility] - Occupational Stress Questionnaire Answer Date [...] 4-6 weeks. Marco Antonio Velasquez MD Ref: SELF[[id number]] [address] ST[address] ADDRESS AVAILABLE None (office) None (fax) PCP: DERIC ENG [address] [facility] [place] [address] [phone] documented in this encounter Nursing Notes * Batsheva Oliveros LPN - 08/17/2023 11:45 AM EDT Patient identified by name and date of . Do you have any concerns about pain management for today's visit? No Living Will or Advance Directive for Health Care as noted on problem list. [facility] is a way you can talk to [...] AM EDT Office Visit Dermatology [facility] [place] [address] [place] [address] Marco Antonio Velasquez MD 200 [facility] [place] [address] Health Maintenance Due Date Last Done Comments [...] Other-Specify documented in this encounter Care Teams Mice Raiser Relationship Specialty Start Date End Date Deric Eng DO [address] [place] [address] PCP - General Family Medicine 03/06/20 documented as of this encounter
[2024-02-11] MEDS: diazePAM 5 MG/ML 10ML VIAL IV STA (14:27)
--- NOTE | 2024-02-11 14:30 | History & Physical Report ---
Date of Service February 11, 2024 Assessment & Plan (1) Intentional overdose of selective serotonin reuptake inhibitor (SSRI): (2) Suicide attempt by multiple drug overdose: (3) MDD (major depressive disorder): (4) JUAN (generalized anxiety disorder): (5) Metabolic acidosis: Plan This is a 24-year-old female with PMH of major depressive disorder, generalized anxiety disorder who presents after intentional overdose. WBC 13K, anion gap 16 Utox positive for amphetamines, MDMA, marijuana. Negative for salicylates, acetaminophen, ethyl alc EKG with sinus tachycardia Given Valium 10mg in ED Diaphoretic, tremulous but not hyperreflexia, alert Poison control called by ED - did not feel antidote needed, recommended 24 hour observation with monitoring for seizure Hold psychiatric meds Seizure precautions Close monitoring for serotonin syndrome NSS with repeat BMP this evening Ativan PRN for seizure Repeat EKG in AM Psych consulted - 302 petition pending, likely to need in-patient psychiatric treatment once medically cleared DVT Ppx: SCDs Code status: FULL PCP: Velasquez Dispo: Admitted to PCU Patient seen in collaboration with Dr. Brush. Please see addendum. I spent a total of 65 minutes coordinating, documenting, and providing care for this patient excluding time spent in the performance of separately billed services. History of Present Illness Chief Complaint: intentional OD Primary Care Provider: Rosio Abbott PA-C This is a 24-year-old female with PMH of major depressive disorder, generalized anxiety disorder who presents after intentional overdose. Worsening anxiety and depression over the semester. Forget about an assignment which prompted more acute feelings of anxiety. [place] impulsive and took whatever was left in her bottles of Lexapro and Wellbutrin as a suicide attempt. Unsure amount of pills ingested or the timing of when she took them last night. Drank Visine as well. Called her friend to pick her up around 10:30 PM. Had shakiness and unresponsiveness episode in the car. Thought it may have been a seizure although no reported tongue biting or urinary incontinence. Her friend called EMS who brought her in for further evaluation. Patient lives in an apartment but parents local and are at bedside during evaluation. Patient initially very delayed in answering per ED but improving. + Shakiness in hands, nausea but no vomiting. Has left shoulder pain but denies a fall. Had chills last week but no fever or other URI symptoms. Feeling nauseous. No visual disturbance, headache, CP, SOB, abd pain, dysuria, diarrhea or constipation. Last panic attack was 3 month ago. Following with a therapist on campus. Denies suicide attempts prior to this. Allergies Allergy/AdvReac Type Severity Reaction Status Date / Time No Known Drug Allergies Allergy Verified 02/15/23 13:58 kiwi AdvReac Verified 02/15/23 13:58 pineapple AdvReac Verified 02/15/23 13:58 Home Medications Medication Instructions Recorded Confirmed Type bupropion HCl 150 mg 24 hr tablet, 150 mg PO DAILY 02/11/24 02/11/24 History extended release escitalopram oxalate 20 mg tablet 20 mg PO DAILY 02/11/24 02/11/24 History norethindrone acetate 1.5 1 tab PO DAILY 02/11/24 02/11/24 History mg-ethinyl estradiol 30 mcg tablet (Junel) Past Med/Surg History Problem List (Updated 02/11/24 @ 17:12 by Stephany Mcgregor PA-C) Metabolic acidosis Intentional overdose of selective serotonin reuptake inhibitor (SSRI) (Acute) Suicide attempt by multiple drug overdose (Acute) Panic attacks (Chronic) Medical History Borderline personality disorder JUAN (generalized anxiety disorder) MDD (major depressive disorder) Surgical History S/P adenoidectomy S/P adenoidectomy Family History Grandfather (Paternal) Colorectal cancer Grandfather (Maternal) Factor V Leiden mutation Family/Other Breast cancer MATERNAL GREAT GRANDMOTHER Other Lung cancer Denies family history of Ovarian cancer Uterine cancer Social History Smoking Status: Never smoker Second Hand Exposure: No; Do You Dip or Chew Tobacco: No; Tobacco Cessation Education Requested by Patient: No Hx Alcohol Use: Yes Alcohol type: wine Alcohol Intake Frequency: 2-3 x/Week Hx Substance Use: No Preferred Language: Syrian Communication Ability: Effective Journeyman Machinist Required: No Beliefs That Will Affect Care: None marital status: Single Current Living Situation: Alone current occupational status: student current occupation: [employer] Other Information That Helps Us Care for You: No Feels Safe at Home: Yes Safety Concerns: Feels Safe At This Time Physical Activity Frequency: 3-4 Times per Week Physical Activity Frequency Comment: walks, swims, works as lifegard in summer Assistive Devices: Contacts Review of Systems Review of Systems: At least ten systems reviewed and negative except as noted in the HPI. Physical Exam Physical Exam: Please see Dr. Brush's addendum for physical exam. Results & Data Results & Data Vital Signs (Past 12 Hours) Vital Signs Temp Pulse Pulse Resp BP BP Pulse Ox 02/11/24 13:37 36.9 C 02/11/24 13:13 121 H 16 111/71 94 02/11/24 12:11 124 H 19 96 02/11/24 11:38 143 H 02/11/24 11:29 36.8 C 147 H 19 134/79 98 02/11/24 11:29 98 02/11/24 11:29 36.8 C 147 H 19 134/79 98 O2 Del Method 02/11/24 13:37 02/11/24 13:13 Room Air 02/11/24 12:11 Room Air 02/11/24 11:38 02/11/24 11:29 Room Air 02/11/24 11:29 Room Air 02/11/24 11:29 Room Air Laboratory Results Short CBC 02/11/24 Range/Units 11:34 WBC 13.03 H (4.8-10.8) K/ul Hgb 13.6 (12.0-16.0) g/dl Hct 42.1 (37.0-47.0) % Plt Count 578 H (130-400) K/uL BMP 02/11/24 11:34 Sodium 137 Potassium 3.6 Chloride 102 Carbon Dioxide 19 L BUN 9 Creatinine 0.77 Glucose 166 H Calcium 9.1 Liver Function 02/11/24 Range/Units 11:34 Total Bilirubin 0.2 (0.2-1.0) mg/dl AST 15 (13-39) U/L ALT 17 (7-52) U/L Alkaline Phosphatase 83 (34-104) U/L Albumin 4.5 (3.4-5.0) gm/dl ECG Additional Comments: sinus tachycardia at 121 bpm Code Status & VTE Plan VTE Prophylaxis Plan VTE Prophylaxis will be ordered: Yes Supervising Physician Co-Signing Physician Notes Patient is a 24-year-old female with history of depression, anxiety disorder, bipolar disorder, obesity and other medical problems presents after intentional overdose of her home medications. Patient has been going through a lot of stress due to her semester/college education. She felt impulsive and took unquantified number of Lexapro, Wellbutrin along with drinking Visine and attempt to commit suicide. Patient denies any suicidal attempts in the past but admits to cutting with anxiety issues. She follows with a therapist as outpatient. After the ingestion, patient had an unresponsive episode which shakiness thought to be likely seizure-like activity. Patient was brought to ED for further evaluation and Poison control was contacted. Currently she denies suicidal thoughts while in ED. History is also obtained from patient's family at bedside. She states having left shoulder pain after seizure-like activity. She denies any incontinence, tongue bite. Please review HPI for complete details of presentation. I personally reviewed blood work and imaging studies. Physical Exam: Vitals signs as noted above General Appearance: Obese, no apparent distress Head: normocephalic, Atraumatic Eyes: normal inspection, EOMI, mydriasis Neck: supple, Trachea midline Respiratory/Chest: Normal breath sounds, CTA, No accessory muscle use Cardiovascular: S1, S2, No murmur Abdomen/GI:Soft, Non tender, Bowel sounds present Extremities/Musculoskeletal:normal inspection, no edema Neurologic/Psych:AAOX3, grossly no focal neurological deficits Skin: normal color, warm, + Cuts on Wrists Intentional overdose Suicide attempt Bipolar disorder Leukocytosis, thrombocytosis likely reactive Mild anion gap metabolic acidosis Possible seizure Reviewed talk screen Monitor for serotonin syndrome, seizures Seizure, fall, aspiration precautions Ativan as needed Psychiatry consulted Monitor QTc Hold home antipsychotic medications One-to-one observation Gentle IV fluids Abnormal urinalysis Rule out UTI Urine culture pending Empirically started on Rocephin Morbid obesity BMI 45 I personally interviewed and examined at bedside. Patient's care is coordinated with Stephany Mcgregor PA-C. I have reviewed the advanced practitioner's documentation, and I agree with plan of care. Please refer to the documentation above for details of patient's presentation and for discussion of other issues. I spent a total [id number] coordinating, documenting, and providing care for this patient excluding time spent in the performance of separately billed services.
[2024-02-11 15:09] LABS: Amphetamines+Metham, Urine Pos (Neg); Barbiturates, Urine Neg (Neg); Benzodiazepine, Urine Neg (Neg); Cocaine, Urine Neg (Neg); Fentanyl, Urine Neg (Neg); MDMA (Ecstacy), Urine Pos (Neg); Marijuana, Urine Pos (Neg); Methadone, Urine Neg (Neg); Opiate, Urine Neg (Neg); Phencyclidine, Urine Neg (Neg)
[2024-02-11 15:13] LABS: Appearance Urine Turbid (Clear); Bilirubin Urine Negative (Negative); Blood Urine Negative (Negative); Calcium Oxalate Crystals Urine Present (None Prsent); Color Urine Dark Yellow; Glucose Urine UA Negative (Negative); Ketones Urine Trace (Negative); Leukocyte Esterase Urine Negative (Negative); Nitrite Urine Negative (Negative); Protein Urine 1+ (Negative); Urobilinogen Urine Negative (Negative); WBC Urine Automated 0-5 /hpf (0-5); pH Urine 5.5 (4.5-7.5)
[2024-02-11 15:23] LABS: Amorphous Sediment Urine Present (None Prsent); Bacteria Urine Automated 2+ (None Seen); RBC Urine Automated 0-2 /hpf (0-2)
[2024-02-11] MEDS ORDERED: LORazepam 2 MG/1 ML VIAL IV PRN (16:24)
[2024-02-11] MEDS ORDERED: POLYETHYLENE (MIRALAX) 17 GM PACK PO PRN (16:24)
[2024-02-11] MEDS ORDERED: ACETAMINOPHEN 325 MG TAB PO PRN (16:24)
[2024-02-11] MEDS: SODIUM CHLORIDE 0.9% 1,000 ML IV ONE (16:51)
--- NOTE | 2024-02-11 17:02 | XRay Report ---
EXAMINATION: X-ray shoulder left minimum 2 view routine CLINICAL HISTORY: Pain PRIORS: None TECHNIQUE: Internal and external rotation and grashey view. FINDINGS: Large body habitus is noted. Humeral head is not high riding. No acute fracture or dislocation. No significant degenerative change. No soft tissue abnormality or calcifications. Visualized ribs and lung have a normal appearance. IMPRESSION: No plain film evidence of an acute osseous abnormality. Electronically signed by Lidya Martins 02-11-2024 5:02 PM
[2024-02-11] MEDS ORDERED: PROMETHAZINE 6.25 MG/50.25 ML BAG IV PRN (18:38)
[2024-02-11] MEDS: ONDANSETRON INJ 2 MG/ML 2 ML VIAL IV STA (19:40)
[2024-02-11 19:42] LABS: BUN Creatinine Ratio 12.3 (10-20); Calcium 9.2 mg/dl (8.6-10.3); Creatinine Clr Calc Pharmacy 196.1 ml/min; Potassium 3.9 mmol/L (3.5-5.1)
[2024-02-11] MEDS ORDERED: cefTRIAXone SODIUM 1,000 MG/50 ML BAG IV SCH (21:00)
[2024-02-11] MEDS: POTASSIUM CHLORIDE CRTAB 20 MEQ TABCR PO ONE (21:08)
[2024-02-11] MEDS: MAGNESIUM SULFATE / D5W 1 GM/100 ML BAG IV ONE (21:09)
[2024-02-11] MEDS: cefTRIAXone SODIUM 2,000 MG/50 ML BAG IV SCH (21:15)
--- NOTE | 2024-02-11 22:59 | Electrocardiogram Report ---
Test Reason : Blood Pressure : */* mmHG Vent. Rate : 142 BPM Atrial Rate : 142 BPM P-R Int : 138 ms QRS Dur : 84 ms QT Int : 274 ms P-R-T Axes : 49 72 5 degrees QTcB Int : 421 ms Sinus tachycardia Cannot rule out Anterior infarct , age undetermined Abnormal ECG When compared with ECG of 02-Oct-2018 16:51, Vent. rate has increased by 49 bpm Confirmed by Agusto Peña ([id number]) on 02/11/2024 10:59:12 PM Referred By: Confirmed By: Agusto Peña
[2024-02-12 07:30] LABS: Hematocrit (blood only) 37.6 % (37.0-47.0); Hemoglobin 12.2 g/dl (12.0-16.0); Mean Corpuscular Hemoglobin 28.8 pg (25.0-34.0); Mean Corpuscular Hgb Conc 32.4 g/dL (32.0-36.0); Mean Corpuscular Volume 88.9 fL (80.0-100.0); Mean Platelet Volume 9.5 fL (9.4-12.4); Platelet Count 429 K/uL (130-400); RDW Coefficient of Variation 12.9 % (11.5-14.5); RDW Standard Deviation 42.1 fL (36.4-46.3); Red Blood Count 4.23 M/uL (4.20-5.40); White Blood Count 10.74 K/ul (4.8-10.8)
[2024-02-12 07:46] LABS: Albumin Globulin Ratio 1.2 (0.9-2); Albumin Level 3.9 gm/dl (3.4-5.0); BUN Creatinine Ratio 6.8 (10-20); Bilirubin,Total 0.2 mg/dl (0.2-1.0); Creatinine Clr Calc Pharmacy 212.1 ml/min; Globulin 3.2 gm/dl (2.5-4.0); Magnesium 2.2 mg/dl (1.7-2.4); Potassium 3.9 mmol/L (3.5-5.1); Total Protein 7.1 gm/dl (6.0-8.3)
[2024-02-12 07:56] LABS: Estimated Average Glucose 114 mg/dl; Hemoglobin A1C 5.6 % (4.5-5.6)
--- NOTE | 2024-02-12 09:38 | Hospitalist Progress Note ---
Date of Service February 12, 2024 Assessment & Plan (1) Intentional overdose of selective serotonin reuptake inhibitor (SSRI): Plan: hold medication until patient seen by psychiatry. (2) Suicide attempt by multiple drug overdose: Plan: Continue with sitter until patient is seen by psychiatry. (3) MDD (major depressive disorder): Plan: hold medication until patient seen by psychiatry. (4) Substance use disorder: Plan: Patient was found to be positive for amphetamine and MDMA and marijuana. Plan Overall it is felt to me that what happened yesterday evening the seizure probably was as a result of substance use, however she does have the behavior of taking extra doses of her medications with the intention of self-harm, for this matter patient is to be seen by psychiatry. Admission and Anticipated Discharge Date Admission Date: February 11, 2024 Subjective Patient is a very pleasant 24-year-old female with history of major depression and generalized anxiety disorder who was admitted to the hospital after she was brought by friend concerning her condition, she reported taking extra doses of her depression medications on the day before. Case was discussed by ED physician and poison control, she was suggested to be observed, she remained stable overnight. She reportedly had a seizure per EMT while en route to the hospital. She was seen and examined, clinically stable, awaiting psychiatric consultation. No other issue such as seizure overnight. Physical Exam Physical Exam: VITALS: Reviewed. WEIGHT/BMI reviewed. GEN: Healthy appearing, well-developed, NAD. CV: RRR, no m/r/g. LUNGS: CTAB, no w/r/c. ABD: Soft, NT/ND, NBS, obese. Results & Data Results & Data Vital Signs (Past 12 Hours) Vital Signs Temp Pulse Pulse Resp BP Pulse Ox O2 Del Method 02/12/24 06:58 36.5 C 84 18 127/84 95 Room Air 02/12/24 04:20 36.6 C 108 H 18 129/83 96 Room Air 02/12/24 00:08 94 H 02/11/24 23:26 36.8 C 93 H 19 101/66 96 Room Air Laboratory Results Laboratory Results - last 24 hr 02/11/24 02/11/24 02/11/24 11:34 14:32 16:34 WBC 13.03 H RBC 4.75 Hgb 13.6 Hct 42.1 MCV 88.6 MCH 28.6 MCHC 32.3 RDW Std Deviation 40.5 RDW Coeff of Mahamed 12.3 Plt Count 578 H MPV 9.4 Immature Gran % (Auto) 0.8 Neut % (Auto) 66.2 Lymph % (Auto) 27.1 Payne % (Auto) 4.8 Eos % (Auto) 0.8 Baso % (Auto) 0.3 Neut # (Auto) 8.63 H Lymph # (Auto) 3.53 H Payne # (Auto) 0.62 H Eos # (Auto) 0.10 Baso # (Auto) 0.04 Immature Gran # (Auto) 0.11 Sodium 137 Potassium 3.6 Chloride 102 Carbon Dioxide 19 L Anion Gap 16 H BUN 9 Creatinine 0.77 Est Cr Clr Drug Dosing 165.6 eGFR 111.09 BUN/Creatinine Ratio 11.7 Glucose 166 H Estimat Average Glucose Hemoglobin A1c Calcium 9.1 Magnesium 2.0 Total Bilirubin 0.2 AST 15 ALT 17 Alkaline Phosphatase 83 Total Creatine Kinase 25 L Total Protein 8.2 Albumin 4.5 Globulin 3.7 Albumin/Globulin Ratio 1.2 Lipase 17 Procalcitonin 0.11 HCG, Qual Negative Urine Color Dark Yellow Urine Appearance Turbid A Urine pH 5.5 Ur Specific Dewitt 1.030 Urine Protein 1+ H Urine Glucose (UA) Negative Urine Ketones Trace H Urine Blood Negative Urine Nitrite Negative Urine Bilirubin Negative Urine Urobilinogen Negative Ur Leukocyte Esterase Negative Urine WBC (Auto) 0-5 Urine RBC (Auto) 0-2 U Hyaline Cast (Auto) 3-5 H U Epithel Cells (Auto) 3-5 H Urine Bacteria (Auto) 2+ H Calcium Oxalate Crystal Present A Amorphous Sediment Present A Salicylates < 3.0 L Urine Opiates Screen Neg Ur Methadone, Qual Neg Urine Fentanyl Screen Neg Acetaminophen < 3 L Urine Barbiturates Neg Ur Phencyclidine (PCP) Neg U Amphetamines Confirm Pending U Amphetamin/Meth Scrn Pos H U Methamphetamin Confrm Pending Urine MDEA Pending MDMA (Ecstasy) Screen Pos H MDMA Pending Urine MDMA Pending U Benzodiazepines Scrn Neg Ur Cocaine Metabolite Neg U Marijuana (THC) Screen Pos H U Marijuana THC Carboxy Pending Drug Screen Comment Pending Ethyl Alcohol mg/dL < 10.0 SARS-CoV-2, RNA, NAAT 02/11/24 02/11/24 02/12/24 18:50 Unknown 06:46 WBC 10.74 RBC 4.23 Hgb 12.2 Hct 37.6 MCV 88.9 MCH 28.8 MCHC 32.4 RDW Std Deviation 42.1 RDW Coeff of Mahamed 12.9 Plt Count 429 H MPV 9.5 Immature Gran % (Auto) Neut % (Auto) Lymph % (Auto) Payne % (Auto) Eos % (Auto) Baso % (Auto) Neut # (Auto) Lymph # (Auto) Payne # (Auto) Eos # (Auto) Baso # (Auto) Immature Gran # (Auto) Sodium 135 L 142 Potassium 3.9 3.9 Chloride 103 107 Carbon Dioxide 20 L 26 Anion Gap 12 H 9 BUN 8 4 L Creatinine 0.65 0.59 L Est Cr Clr Drug Dosing 196.1 212.1 eGFR 126.80 129.79 BUN/Creatinine Ratio 12.3 6.8 L Glucose 110 H 80 Estimat Average Glucose 114 Hemoglobin A1c 5.6 Calcium 9.2 9.0 Magnesium 2.2 Total Bilirubin 0.2 AST 16 ALT 15 Alkaline Phosphatase 75 Total Creatine Kinase Total Protein 7.1 Albumin 3.9 Globulin 3.2 Albumin/Globulin Ratio 1.2 Lipase Procalcitonin HCG, Qual Urine Color Urine Appearance Urine pH Ur Specific Dewitt Urine Protein Urine Glucose (UA) Urine Ketones Urine Blood Urine Nitrite Urine Bilirubin Urine Urobilinogen Ur Leukocyte Esterase Urine WBC (Auto) Urine RBC (Auto) U Hyaline Cast (Auto) U Epithel Cells (Auto) Urine Bacteria (Auto) Calcium Oxalate Crystal Amorphous Sediment Salicylates Urine Opiates Screen Ur Methadone, Qual Urine Fentanyl Screen Acetaminophen Urine Barbiturates Ur Phencyclidine (PCP) U Amphetamines Confirm U Amphetamin/Meth Scrn U Methamphetamin Confrm Urine MDEA MDMA (Ecstasy) Screen MDMA Urine MDMA U Benzodiazepines Scrn Ur Cocaine Metabolite U Marijuana (THC) Screen U Marijuana THC Carboxy Drug Screen Comment Ethyl Alcohol mg/dL SARS-CoV-2, RNA, NAAT NEGATIVE Diagnostic Findings Shoulder X-Ray 02/11/24 16:24 EXAMINATION: X-ray shoulder left minimum 2 view routine CLINICAL HISTORY: Pain PRIORS: None TECHNIQUE: Internal and external rotation and grashey view. FINDINGS: Large body habitus is noted. Humeral head is not high riding. No acute fracture or dislocation. No significant degenerative change. No soft tissue abnormality or calcifications. Visualized ribs and lung have a normal appearance. IMPRESSION: No plain film evidence of an acute osseous abnormality. Electronically signed by Lidya Martins 02-11-2024 5:02 PM Medications Administered Current Inpatient Medications Acetaminophen (Acetaminophen 325 Mg Tab) 650 mg PO Q4H PRN PRN Reason: Pain or Fever Stop: 03/12/24 16:23 Promethazine HCl (Phenergan) 6.25 mg in 50.25 mls @ 201 mls/hr IV Q6H PRN PRN Reason: Nausea And Vomiting Stop: 03/12/24 18:37 Ceftriaxone Sodium (Rocephin) 2,000 mg in 50 mls @ 100 mls/hr IV Q24H LEILA Stop: 02/16/24 20:59 Last Infusion: 02/11/24 22:13 Dose: Infused Lorazepam (Lorazepam 2 Mg/1 Ml Vial) 2 mg IV Q6H PRN PRN Reason: Seizures Stop: 03/12/24 16:23 Polyethylene Glycol (Polyethylene (Miralax) 17 Gm Pack) 17 gm PO DAILY PRN PRN Reason: Constipation Stop: 03/12/24 16:23
--- NOTE | 2024-02-12 13:56 | Discharge Summary ---
Discharge Summary Date of Service February 12, 2024 Principal Dx & Hospital Course #1 = Principal Diagnosis (1) Intentional overdose of selective serotonin reuptake inhibitor (SSRI): hold medication until patient seen by psychiatry. (2) Suicide attempt by multiple drug overdose: (3) MDD (major depressive disorder): (4) Substance use disorder: Patient was found to be positive for amphetamine and MDMA and marijuana. Plan Patient will be transferred to inpatient psychiatric unit. Notes For Next Care Provider Medication Changes From Visit No change Admission HPI Per Admitting Provider Patient is a very pleasant 24-year-old female with history of major depression and generalized anxiety disorder who was admitted to the hospital after she was brought by friend concerning her condition, she reported taking extra doses of her depression medications on the day before. Case was discussed by ED physician and poison control, she was suggested to be observed, she remained stable overnight. She reportedly had a seizure per EMT while en route to the hospital. Patient was seen and examined today, clinically remained stable, per psychiatry input, patient will be transferred to inpatient psychiatric unit. Discharge Exam per my last exam per my last examination this morning Updated Medication List Medication Instructions Recorded Confirmed Type bupropion HCl 150 mg 24 hr tablet, 150 mg PO DAILY 02/11/24 02/11/24 History extended release escitalopram oxalate 20 mg tablet 20 mg PO DAILY 02/11/24 02/11/24 History norethindrone acetate 1.5 1 tab PO DAILY 02/11/24 02/11/24 History mg-ethinyl estradiol 30 mcg tablet (Junel) Hospital Stay Data Consultations 02/11/24 13:54 ED Decision to Admit Stat 02/11/24 16:24 Consult Psychiatry Routine Pending Results Patient Have Any Pending Studies at Discharge: No Discharge Instructions Given to Patient (Per Discharging Provider) None Total Time Total Time Spent Total Time Spent (In Minutes): Less than 25 minutes
--- NOTE | 2024-02-12 14:16 | Psychiatric Consultation ---
Date of Consultation February 12, 2024 Impression / Recommendations Impression Arely Worthington is a 24 y/o F domiciled with roommate, [employer] senior who presents with an overdose attempt of Lexapro, Wellbutrin, Visine in the context of being overwhelmed by a project deadline for school. Admitted medically for monitoring and psychiatry consulted for evaluation. Presentation concerning for borderline personality disorder, MDD in partial remission and generalized anxiety disorder. She presents with recent overdose of her psychotropics likely to cope with distressing anxiety. She presents a history of impulsivity with self-harm, unstable emotions, feelings of anger. Endorses past depressive episodes that have been treated with antidepressants. Concern for past trauma, Emotional neglect, and poor self-esteem. Labs reviewed: CBC, CMP, beta hCG, blood alcohol unremarkable; abnormal UA; UDS+ amphetamines, MDMA, THC; EKG at 79 bpm with QTc of 470 ms and prolonged. Once medically cleared patient would benefit from admission to inpatient behavioral health. Recommend to hold home psychotropics and will resume once on the unit. QT prolonged likely due to recent overdose. Patient would benefit from referral to intensive outpatient program. Overall, I spent a total of 80 minutes with this case including review of chart records, nursing report, review of lab work, direct evaluation of the patient at bedside, counseling the patient, discussion of the patient with the hospitalist provider, discussion with the psychiatric liaison during clinical rounds, and documentation in the electronic health record. (1) Overdose of antidepressant: (2) QT prolongation: (3) Borderline personality disorder: (4) MDD (major depressive disorder), recurrent episode: (5) JUAN (generalized anxiety disorder): Plan -Hold home psychotropics -Inpatient psychiatry admission -Continue bedside sitter Psych History Identifying Data Arely Worthington is a 24 y/o F domiciled with roommate, [employer] [facility] senior who presents with an overdose attempt of Lexapro, Wellbutrin, Visine in the context of being overwhelmed by a project deadline for school. Admitted medically for monitoring and psychiatry consulted for evaluation. Chief Complaint "Monday night overdosed on my medications" History of Present Illness Patient reports Monday was a "normal day, nothing bad happened". At 2 AM she realized that schoolwork was due 3 days earlier than expected. She became anx ious and fearful. She reports having some suicidal ideation and felt ambivalent about the situation. Then she took the remainder of the pills in her prescription bottle. Says she took "whatever meds fell out of her backpack". Said that it "happened fast without thought". She then went to sleep and the next day in the morning she felt terrible and asked her friend to take her to the hospital. She denies associated alcohol or drugs with the ingestion. On the way to the hospital her friend witnessed her having a 7-second seizure with 45 seconds of unconsciousness and EMS arrived. Reports prior to the incident was sleeping okay and had fair energy. Recently worse appetite and poor concentration. Has not been doing well in school. She feels after starting her antidepressant medication feels that her depression and anxiety have improved overall. She reports past impulsivity often breaking glasses and plates and going on shopping sprees. She presents some healed transverse cuts on her forearms and says she last cut herself before January. She is unsure of the drivers for self-harm. She complains of unstable emotions and it internal feelings of anger. Denies having abandonment reaction. Denies past episodes of decreased need for sleep with elevated mood, energy, goal directed activity. Denies past auditory visualizations. Reports family psychiatric history significant for paternal cousin with borderline personality disorder. Drinks alcohol once weekly with force ulcers. Smokes marijuana 3 times a week through weeping for sleep and creativity. Social history: Lives in apartment with roommate. From [employer] and parents live close by. Sees a masters level psychologist for therapy through [facility] counseling. Studying [employer] and is a "super senior". In a relationship with boyfriend and supportive. Allergies Allergy/AdvReac Type Severity Reaction Status Date / Time No Known Drug Allergies Allergy Verified 02/15/23 13:58 kiwi AdvReac Verified 02/15/23 13:58 pineapple AdvReac Verified 02/15/23 13:58 Home Medications Medication Instructions Recorded Confirmed Type bupropion HCl 150 mg 24 hr tablet, 150 mg PO DAILY 02/11/24 02/11/24 History extended release escitalopram oxalate 20 mg tablet 20 mg PO DAILY 02/11/24 02/11/24 History norethindrone acetate 1.5 1 tab PO DAILY 02/11/24 02/11/24 History mg-ethinyl estradiol 30 mcg tablet () Patient History Medical History Borderline personality disorder JUAN (generalized anxiety disorder) MDD (major depressive disorder) Surgical History S/P adenoidectomy S/P adenoidectomy Family History Grandfather (Paternal) Colorectal cancer Grandfather (Maternal) Factor V Leiden mutation Family/Other Breast cancer MATERNAL GREAT GRANDMOTHER Other Lung cancer Denies family history of Ovarian cancer Uterine cancer Social History Smoking Status: Never smoker Second Hand Exposure: No; Do You Dip or Chew Tobacco: No; Tobacco Cessation Education Requested by Patient: No Hx Alcohol Use: Yes Alcohol type: wine Alcohol Intake Frequency: 2-3 x/Week Hx Substance Use: No Preferred Language: Citizen Of [place] Communication Ability: Effective Macerator Operator Required: No Beliefs That Will Affect Care: None marital status: Single Current Living Situation: Alone current occupational status: student current occupation: [employer] Other Information That Helps Us Care for You: No Feels Safe at Home: Yes Safety Concerns: Feels Safe At This Time Physical Activity Frequency: 3-4 Times per Week Physical Activity Frequency Comment: walks, swims, works as lifegard in summer Assistive Devices: Contacts Physical Exam Mental Examination: Appearance: Disheveled Eye Contact: Maintains Eye Contact Motor Behavior: Unremarkable Speech: Normal Mood: Euthymic and Calm Affect: Anxious, Apprehensive and Constricted Thought Process: Intact and Linear Thought Content: Intact Hallucinations: None Insight: Fair (to limited) Judgement: Poor Vital Signs (Past 24 Hours): Last Vital Signs Temp 36.8 C 02/12/24 11:37 Pulse 90 02/12/24 11:37 Resp 17 02/12/24 11:37 BP 135/87 02/12/24 11:37 Pulse Ox 96 02/12/24 11:37 O2 Del Method Room Air 02/12/24 11:37 [place] [address] IN/OBS CONSULT LVL 5,80M Patient Type New History Comprehensive Exam Comprehensive Medical Decision Making High Complexity Diagnoses Overdose of antidepressant T43.201A QT prolongation R94.31 Borderline personality disorder F60.3 MDD (major depressive disorder), recurrent episode F33.9 JUAN (generalized anxiety disorder) F41.1
[2024-02-12 14:53] VITALS: BP 137/89; RESP 18; TEMP 98.1; O2SAT 95
[2024-02-12 18:02] VITALS: PULSE 88
--- NOTE | 2024-02-13 23:34 | Electrocardiogram Report ---
Test Reason : Blood Pressure : */* mmHG Vent. Rate : 104 BPM Atrial Rate : 104 BPM P-R Int : 166 ms QRS Dur : 92 ms QT Int : 384 ms P-R-T Axes : 26 35 -8 degrees QTcB Int : 504 ms Sinus tachycardia Prolonged QT When compared with ECG of 11-Feb-2024 15:20, QT has lengthened Confirmed by Agusto Peña ([id number]) on 02/13/2024 11:34:45 PM Referred By: REFERRED SELF Confirmed By: Agusto Peña
--- NOTE | 2024-02-13 23:34 | Electrocardiogram Report ---
Test Reason : Blood Pressure : */* mmHG Vent. Rate : 120 BPM Atrial Rate : 120 BPM P-R Int : 156 ms QRS Dur : 88 ms QT Int : 330 ms P-R-T Axes : 37 39 1 degrees QTcB Int : 466 ms Sinus tachycardia Nonspecific T wave abnormality When compared with ECG of 11-Feb-2024 11:23, No significant change was found Confirmed by Agusto Peña ([id number]) on 02/13/2024 11:33:45 PM Referred By: REFERRED SELF Confirmed By: Agusto Peña
--- NOTE | 2024-02-13 23:35 | Electrocardiogram Report ---
Test Reason : Blood Pressure : */* mmHG Vent. Rate : 79 BPM Atrial Rate : 79 BPM P-R Int : 150 ms QRS Dur : 90 ms QT Int : 410 ms P-R-T Axes : 15 28 -6 degrees QTcB Int : 470 ms Normal sinus rhythm Nonspecific T wave abnormality When compared with ECG of 12-Feb-2024 03:44, No significant change was found Confirmed by Agusto Peña ([id number]) on 02/13/2024 11:35:51 PM Referred By: REFERRED SELF Confirmed By: Agusto Peña
--- NOTE | 2024-02-13 23:35 | Electrocardiogram Report ---
Test Reason : Blood Pressure : */* mmHG Vent. Rate : 87 BPM Atrial Rate : 87 BPM P-R Int : 146 ms QRS Dur : 88 ms QT Int : 394 ms P-R-T Axes : 45 45 -4 degrees QTcB Int : 474 ms Normal sinus rhythm Nonspecific T wave abnormality When compared with ECG of 11-Feb-2024 23:36, No significant change was found Confirmed by Agusto Peña ([id number]) on 02/13/2024 11:35:13 PM Referred By: REFERRED SELF Confirmed By: Agusto Peña
--- NOTE | 2024-02-13 23:35 | Electrocardiogram Report ---
Test Reason : Blood Pressure : */* mmHG Vent. Rate : 90 BPM Atrial Rate : 90 BPM P-R Int : 150 ms QRS Dur : 94 ms QT Int : 392 ms P-R-T Axes : 32 39 -9 degrees QTcB Int : 479 ms Poor data quality, interpretation may be adversely affected Normal sinus rhythm Prolonged QT Nonspecific T wave abnormality When compared with ECG of 12-Feb-2024 03:43, No significant change was found Confirmed by Agusto Peña ([id number]) on 02/13/2024 11:35:30 PM Referred By: REFERRED SELF Confirmed By: Agusto Peña
--- NOTE | 2024-02-13 23:35 | Electrocardiogram Report ---
Test Reason : Blood Pressure : */* mmHG Vent. Rate : 91 BPM Atrial Rate : 91 BPM P-R Int : 146 ms QRS Dur : 96 ms QT Int : 390 ms P-R-T Axes : 25 33 -8 degrees QTcB Int : 479 ms Normal sinus rhythm Prolonged QT Nonspecific T wave abnormality When compared with ECG of 11-Feb-2024 19:35, No significant change was found Confirmed by Agusto Peña ([id number]) on 02/13/2024 11:35:00 PM Referred By: REFERRED SELF Confirmed By: Agusto Peña
== END 2024-02-12 18:28 | DRG 918 ==
LOC: ED 11:18 → SUATTDRO 14:08 → 2S 14:08

== ENCOUNTER 2024-02-12 14:43 | Inpatient (IN) ==
[2024-02-12 19:35] VITALS: O2SAT 98
[2024-02-12] MEDS ORDERED: hydrOXYzine HCl 25 MG TAB PO PRN (19:35)
[2024-02-12] MEDS ORDERED: SODIUM CHLORIDE 0.65% NA SOLN 45 ML (OCEAN) PRN (19:35)
[2024-02-12] MEDS ORDERED: ALUMINUM/MAGNESIUM SUSP 30 ML UDC PO PRN (19:35)
[2024-02-12] MEDS ORDERED: BISMUTH SUBSALICYLATE 262 MG CHEW PO PRN (19:35)
[2024-02-12] MEDS ORDERED: MAGNESIUM HYDROXIDE SUSP 30 ML UDC PO PRN (19:35)
[2024-02-12] MEDS: ACETAMINOPHEN 325 MG TAB PO PRN (21:17)
[2024-02-13 06:39] VITALS: RESP 16; TEMP 98.1
--- NOTE | 2024-02-13 13:37 | History & Physical ---
Date of Service February 13, 2024 Impression / Recommendations Impression Arely Worthington is a 24 y/o F domiciled with roommate, [employer] [facility] senior who presents with an overdose attempt of Lexapro, Wellbutrin, Visine in the context of being overwhelmed by a project deadline for school. She was admitted on 02/12/24 18:29 on a 201 voluntary commitment for suicide attempt. Presentation concerning for borderline personality disorder, MDD in partial remission and generalized anxiety disorder. She presents with recent overdose of her psychotropics likely to cope with distressing anxiety. She presents a history of impulsivity with self-harm, unstable emotions, feelings of anger. Endorses past depressive episodes that have been treated with antidepressants. Concern for past trauma, Emotional neglect, and poor self-esteem. A: Patient's recent attempt was likely due to distressing anxiety and poor coping skills. She denies current suicidal ideation. Repeat EKG today was within normal limits with stable corrected QT interval and normal sinus rhythm. Plan to restart her home medications at a lower dose tomorrow. She denies associated trauma with her recent overdose and is agreeable to restart her medications. She presents a history of major depressive episodes that have been well treated with antidepressants however continues to have problems with impulsivity, self-harm, feelings of emptiness, mood lability. She was encouraged to complete an intensive outpatient program and was educated on the benefits. Overall, I spent a total of 60 minutes with this case including review of chart records, nursing report, review of lab work, direct evaluation of the patient at bedside, counseling the patient, multidisciplinary team meeting, orders, and documentation in the electronic health record. (1) Intentional overdose of selective serotonin reuptake inhibitor (SSRI): (2) QT prolongation: (3) Borderline personality disorder: (4) MDD (major depressive disorder), recurrent episode: (5) JUAN (generalized anxiety disorder): Plan 02/13/2024: The patient was [facility] ([facility] inpatient mental health unit) on q15 min checks (behavioral with suicide precautions) for safety. The patient will participate in group, recreational, and milieu therapies and will be offered additional individual and family sessions as clinically appropriate. -Repeat EKG. -Melatonin 3 mg at bedtime. -Restart home medications: Lexapro 10 mg daily and Wellbutrin 150 mg daily. -Labs: TSH, vitamin D, vitamin B12, fasting lipid panel, A1c. -Schneider Borderline PD screener Inventory Assets Strengths: independent, future oriented Needs: emotional resilience, coping strategies Suicide Risk Level Suicide Risk Level: Moderate (q15 min suicide checks) Risk Factors Assessment Male: No : Yes Do You Have Access To A Gun?: No Health Problems: No Mental Health Diagnoses: Yes Substance Use Disorders: No Previous Attempt: No Family History of Suicide: No Previous Psychiatric Hospitalization: No Hopelessness: No Protective Factors Assessment Jehovah'S Witness Beliefs: No : No Responsible for Young Children: No Employed: No Stable Relationships: Yes Supportive Family: Yes Good Rapport with Provider: Yes Absence of Any Risk Factors Above: No Psychiatric History Identifying Data Arely Worthington is a 24 y/o F domiciled with roommate, [facility] who presents with an overdose attempt of Lexapro, Wellbutrin, Visine in the context of being overwhelmed by a project deadline for school. She was admitted on 02/12/24 18:29 on a 201 voluntary commitment for suicide attempt. Chief Complaint Overdose History of Present Illness From initial consult note: "Patient reports Monday was a "normal day, nothing bad happened". At 2 AM she realized that schoolwork was due 3 days earlier than expected. She became anxious and fearful. She reports having some suicidal ideation and felt ambivalent about the situation. Then she took the remainder of the pills in her prescription bottle. Says she took "whatever meds fell out of her backpack". Said that it "happened fast without thought". She then went to sleep and the next day in the morning she felt terrible and asked her friend to take her to the hospital. She denies associated alcohol or drugs with the ingestion. On the way to the hospital her friend witnessed her having a 7- second seizure with 45 seconds of unconsciousness and EMS arrived. Reports prior to the incident was sleeping okay and had fair energy. Recently worse appetite and poor concentration. Has not been doing well in school. She feels after starting her antidepressant medication feels that her depression and anxiety have improved overall. She reports past impulsivity often breaking glasses and plates and going on shopping sprees. She presents some healed transverse cuts on her forearms and says she last cut herself before January. She is unsure of the drivers for self-harm. She complains of unstable emotions and it internal feelings of anger. Denies having abandonment reaction. Denies past episodes of decreased need for sleep with elevated mood, energy, goal directed activity. Denies past auditory visualizations. Reports family psychiatric history significant for paternal cousin with borderline personality disorder. Drinks alcohol once weekly with force ulcers. Smokes marijuana 3 times a week through weeping for sleep and creativity. Social history: Lives in apartment with roommate. From [employer] and parents live close by. Sees a masters level psychologist for therapy through [facility]. Studying [employer] and is a "super senior". In a relationship with boyfriend and supportive." Today: The patient reports initially trying sertraline for 1 year and then became more anxious. She was switched to Lexapro and has been on it for 3 years. The dose was increased from 10 to 20 mg 1 year ago. Additionally was started on Wellbutrin 1 year ago. PCP has been managing medications. She reports feeling less anxious with Lexapro and Wellbutrin has been effective for energy. Says that she used to feel suicidal often and that is no longer happening however she feels more apathetic. She wants to have improved concentration and reduced impulsivity. She reports her recent attempt was a "spur of the moment" action. Complains that her mood fluctuates due to the situation. She reports historical panic attacks but none recently. She grew up in [place] with both her parents. Has one younger adopted brother from [facility] who has behavioral issues. She denies having any emotional neglect and denies emotional, physical, sexual abuse. Reports that mother and sister are anxious and her brother is likely depressed. Many members of paternal side has depression. Has been to 3 therapists in the past and the initial 2 were not helpful when they did CBT however current one is. Currently doing countertransference therapy as well. Past Psychiatric History Current Psychiatric Diagnosis: MDD, JUAN, BPD, ARFID Do You Have Access To A Gun?: No History of Previous Suicide Attempt: No Allergies Allergy/AdvReac Type Severity Reaction Status Date / Time No Known Drug Allergies Allergy Verified 02/15/23 13:58 kiwi AdvReac Verified 02/15/23 13:58 pineapple AdvReac Verified 02/15/23 13:58 Home Medications Medication Instructions Recorded Confirmed Type bupropion HCl 150 mg 24 hr tablet, 150 mg PO DAILY 02/11/24 02/11/24 History extended release escitalopram oxalate 20 mg tablet 20 mg PO DAILY 02/11/24 02/11/24 History norethindrone acetate 1.5 1 tab PO DAILY 02/11/24 02/11/24 History mg-ethinyl estradiol 30 mcg tablet (Junel) Family History Family History of: Depression, Anxiety, Alcoholism/Drug Abuse and Bipolar Alcohol History Hx of Alcohol Use Over the Past 12 Months: No AUDIT Total Score: 5 Smoking Use Have You Smoked or Used Tobacco Products in the Last 30 Days: No Smoking Status: Never smoker Substance History Hx of Prescription Med Misuse Over the Past 12 Months: No Hx of Over the Counter Med Misuse Over the Past 12 Months: No Hx of Inhalent Misuse Over the Past 12 Months: No Hx of Organic Substance Use Over the Past 12 Months: Yes (Marijuana) Hx of Illegal Substances/Street Drug Use Over Past 12 Months: No Problems as a Result of Past Substance Use: None Identified Problems as a Result of Past Substance Use Comments: None Personal History Living Arrangements: Apartment Highest Grade Completed: Some College Highest Grade Completed Comment: High School. Currently in school Marital Status: Single Number Of Children: 0 Beliefs That Will Affect Care: None Patient History Medical History (Updated 02/13/24 @ 13:36 by Giorgio Moya MD) Metabolic acidosis Panic attacks Borderline personality disorder JUAN (generalized anxiety disorder) MDD (major depressive disorder) Surgical History S/P adenoidectomy S/P adenoidectomy Family History Grandfather (Paternal) Colorectal cancer Grandfather (Maternal) Factor V Leiden mutation Family/Other Breast cancer MATERNAL GREAT GRANDMOTHER Other Lung cancer Denies family history of Ovarian cancer Uterine cancer Social History Smoking Status: Never smoker Second Hand Exposure: No; Do You Dip or Chew Tobacco: No; Hx Alcohol Use: Yes Alcohol type: wine Alcohol Intake Frequency: 2-3 x/Week Hx Substance Use: No Preferred Language: Khmer Communication Ability: Effective Pta Required: No Beliefs That Will Affect Care: None marital status: Single Current Living Situation: Alone current occupational status: student current occupation: [employer] Feels Safe at Home: Yes Physical Activity Frequency: 3-4 Times per Week Physical Activity Frequency Comment: walks, swims, 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 Assistive Devices: Contacts and Glasses Physical Exam Mental Examination: Appearance: Well Groomed Eye Contact: Fleeting Contact Motor Behavior: Unremarkable Speech: Soft and Delayed Mood: Euthymic and Calm Affect: Anxious and Constricted Thought Process: Intact and Linear Thought Content: Intact Hallucinations: None Insight: Fair (to limited) Judgement: Poor Vital Signs (Past 24 Hours): Last Vital Signs Temp 36.7 C 02/13/24 06:36 Pulse 88 02/13/24 06:37 Resp 16 02/13/24 06:36 BP 138/88 02/13/24 06:37 Pulse Ox 98 02/12/24 18:30 O2 Del Method Room Air 02/12/24 18:30 Exam Statement: A physical exam was performed in the ED for the purposes of medical clearance. I accept that physical as correct and adequate for the purposes of the inpatient physical exam. Results & Data ([facility]) Current Inpatient Medications Current Inpatient Medications: Current Inpatient Medications Acetaminophen (Acetaminophen 325 Mg Tab) 650 mg PO Q4H PRN PRN Reason: Headache or Minor Fever Stop: 03/13/24 19:34 Last Admin: 02/12/24 21:17 Dose: 650 mg Al Hydrox/Mg Hydrox/Simethicone (Aluminum/Magnesium Susp 30 Ml Udc) 30 ml PO Q4H PRN PRN Reason: GI Upset Stop: 03/13/24 19:34 Bismuth Subsalicylate (Bismuth Subsalicylate 262 Mg Chew) 2 tab PO Q30M PRN PRN Reason: Loose Stool/Diarrhea Stop: 03/13/24 19:34 Bupropion HCl (Bupropion Xl 150 Mg Tabcr) 150 mg PO DAILY LEILA Stop: 03/15/24 08:59 Escitalopram Oxalate (Escitalopram Oxalate 10 Mg Tab) 10 mg PO DAILY LEILA Stop: 03/15/24 08:59 Hydroxyzine HCl (Hydroxyzine Hcl 25 Mg Tab) 50 mg PO HSZ PRN PRN Reason: Insomnia Stop: 03/13/24 19:34 Hydroxyzine HCl (Hydroxyzine Hcl 25 Mg Tab) 25 mg PO Q4H PRN PRN Reason: Anxiety Stop: 03/13/24 19:34 Magnesium Hydroxide (Magnesium Hydroxide Susp 30 Ml Udc) 30 ml PO DAILY PRN PRN Reason: Constipation Stop: 03/13/24 19:34 Melatonin (Melatonin 3 Mg Tab) 3 mg PO HS [facility] Stop: 03/14/24 21:59 Sodium Chloride (Sodium Chloride 0.65% Na Soln 45 Ml ([place])) 1 - 2 sprays NA PRN PRN PRN Reason: Nasal Dryness/Congestion Stop: 03/13/24 19:34
[2024-02-13] MEDS: hydrOXYzine HCl 25 MG TAB PO PRN (14:13)
[2024-02-13] MEDS: MELATONIN 3 MG TAB PO SCH (22:41)
--- NOTE | 2024-02-13 23:36 | Electrocardiogram Report ---
Test Reason : Blood Pressure : */* mmHG Vent. Rate : 73 BPM Atrial Rate : 73 BPM P-R Int : 140 ms QRS Dur : 78 ms QT Int : 414 ms P-R-T Axes : 11 43 -2 degrees QTcB Int : 456 ms Normal sinus rhythm Nonspecific T wave abnormality When compared with ECG of 12-Feb-2024 07:34, No significant change was found Confirmed by Agusto Peña ([id number]) on 02/13/2024 11:36:11 PM Referred By: Giorgio Moya Confirmed By: Agusto Peña
[2024-02-14 08:31] LABS: Estimated Average Glucose 114 mg/dl; Hemoglobin A1C 5.6 % (4.5-5.6)
[2024-02-14 08:48] LABS: Thyroid Stimulating Hormone 1.96 uIu/ml (0.300-4.500)
[2024-02-14] MEDS: buPROPion XL 150 MG TABCR PO SCH (10:08)
[2024-02-14] MEDS: ESCITALOPRAM OXALATE 10 MG TAB PO SCH (10:08)
--- NOTE | 2024-02-14 13:57 | Psychiatric Progress Note ---
Date of Service February 14, 2024 Impression / Recommendations Impression Arely Worthington is a 24 y/o F domiciled with roommate, [employer] senior who presents with an overdose attempt of Lexapro, Wellbutrin, Visine in the context of being overwhelmed by a project deadline for school. She was admitted on 02/12/24 18:29 on a 201 voluntary commitment for suicide attempt. Presentation concerning for borderline personality disorder, MDD in partial remission and generalized anxiety disorder. She presents with recent overdose of her psychotropics likely to cope with distressing anxiety. She presents a history of impulsivity with self-harm, unstable emotions, feelings of anger. Endorses past depressive episodes that have been treated with antidepressants. Concern for past trauma, Emotional neglect, and poor self-esteem. A: Patient has been restarted on her home psychotropics and she is tolerating them well. Plan to further increase Lexapro back to home dose. Continues to deny SI and is future oriented. Patient would benefit from intensive outpatient program. Social work established outpatient psychiatry at [facility]. Concern for mild ADHD and patient advised to follow up on an outpatient basis. Labs resulted: A1c, tsh, vitamin b12 unremarkable; lipid panel cholesterol and triglycerides elevated; Vit D deficient at 17.7. Overall, I spent a total of 30 minutes with this case including review of chart records, nursing report, review of lab work, direct evaluation of the patient at bedside, counseling the patient, multidisciplinary team meeting, orders, and documentation in the electronic health record. (1) Intentional overdose of selective serotonin reuptake inhibitor (SSRI): (2) Borderline personality disorder: (3) MDD (major depressive disorder), recurrent episode: (4) JUAN (generalized anxiety disorder): (5) Vitamin D deficiency: Plan 02/14/2024: Increase Lexapro to 20 mg daily. Start Vit D 5000u daily. 02/13/2024: The patient was admitted to the [facility] ([facility] inpatient mental health unit) on q15 min checks (behavioral with suicide precautions) for safety. The patient will participate in group, recreational, and milieu therapies and will be offered additional individual and family sessions as clinically appropriate. -Repeat EKG. -Melatonin 3 mg at bedtime. -Restart home medications: Lexapro 10 mg daily and Wellbutrin 150 mg daily. -Labs: TSH, vitamin D, vitamin B12, fasting lipid panel, A1c. -Schneider Borderline PD screener Inventory Assets Strengths: independent, future oriented Needs: emotional resilience, coping strategies Suicide Risk Level Suicide Risk Level: Moderate (q15 min suicide checks) Risk Factors Assessment Male: No : Yes Do You Have Access To A Gun?: No Health Problems: No Mental Health Diagnoses: Yes Substance Use Disorders: No Previous Attempt: No Family History of Suicide: No Previous Psychiatric Hospitalization: No Hopelessness: No Protective Factors Assessment Sikh Beliefs: No : No Responsible for Young Children: No Employed: No Stable Relationships: Yes Supportive Family: Yes Good Rapport with Provider: Yes Absence of Any Risk Factors Above: No Interval History Identifying Information Arely Worthington is a 24 y/o F domiciled with roommate, [facility] who presents with an overdose attempt of Lexapro, Wellbutrin, Visine in the context of being overwhelmed by a project deadline for school. She was admitted on 02/12/24 18:29 on a 201 voluntary commitment for suicide attempt. Chief Complaint Impulsivity Review of Systems Sleep Information Total Hours of Sleep: 6 Meal Information Percent Meal Consumed - Breakfast: 100 Percent Meal Consumed - Lunch: 75 Percent Meal Consumed - Dinner: 100 Subjective Subjective Patient was seen & assessed and interval progress reviewed with treatment team nursing and social work Patient rated mood 6 out of 10. Reports being upset that she would lose outpatient therapist after completion of intensive outpatient program. Patient slept well and reports no disturbances overnight. She denies suicidal ideation. She wants to see an improvement in her impulsivity and concentration. She reports chronic apathy and has trouble enjoying activities. Reports it is dif ficult for her to "lock-in" into tasks and that deadlines give her motivation. She wants to involve boyfriend in a family meeting. Has been tolerating the medications well. Physical Exam Mental Examination Appearance: Well Groomed Eye Contact: Fleeting Contact Motor Behavior: Unremarkable Speech: Soft and Delayed Mood: Euthymic and Calm Affect: Anxious and Constricted Thought Process: Intact and Linear Thought Content: Intact Hallucinations: None Insight: Fair (to limited) Judgement: Poor (to limited) Vital Signs (Past 24 Hours) Last Vital Signs Temp 36.7 C 02/14/24 06:34 Pulse 85 02/14/24 06:34 Resp 16 02/14/24 06:34 BP 138/92 02/14/24 06:34 Pulse Ox 98 02/12/24 18:30 O2 Del Method Room Air 02/12/24 18:30 Results & Data ([facility]) Laboratory Results Laboratory Results - last 24 hr 02/14/24 07:33 Estimat Average Glucose 114 Hemoglobin A1c 5.6 Triglycerides 174 H Cholesterol 219 H LDL Cholesterol, Calc 140 VLDL Cholesterol, Calc 35 H HDL Cholesterol 44 Cholesterol/HDL Ratio 5.0 Vitamin B12 305 25-OH Vitamin D Total 17.7 L TSH 1.960 Current Inpatient Medications Current Inpatient Medications: Current Inpatient Medications Acetaminophen (Acetaminophen 325 Mg Tab) 650 mg PO Q4H PRN PRN Reason: Headache or Minor Fever Stop: 03/13/24 19:34 Last Admin: 02/13/24 14:13 Dose: 650 mg Al Hydrox/Mg Hydrox/Simethicone (Aluminum/Magnesium Susp 30 Ml Udc) 30 ml PO Q4H PRN PRN Reason: GI Upset Stop: 03/13/24 19:34 Bismuth Subsalicylate (Bismuth Subsalicylate 262 Mg Chew) 2 tab PO Q30M PRN PRN Reason: Loose Stool/Diarrhea Stop: 03/13/24 19:34 Bupropion HCl (Bupropion Xl 150 Mg Tabcr) 150 mg PO DAILY LEILA Stop: 03/15/24 08:59 Last Admin: 02/14/24 10:08 Dose: 150 mg Hydroxyzine HCl (Hydroxyzine Hcl 25 Mg Tab) 50 mg PO HSZ PRN PRN Reason: Insomnia Stop: 03/13/24 19:34 Hydroxyzine HCl (Hydroxyzine Hcl 25 Mg Tab) 25 mg PO Q4H PRN PRN Reason: Anxiety Stop: 03/13/24 19:34 Last Admin: 02/13/24 14:13 Dose: 25 mg Magnesium Hydroxide (Magnesium Hydroxide Susp 30 Ml Udc) 30 ml PO DAILY PRN PRN Reason: Constipation Stop: 03/13/24 19:34 Melatonin (Melatonin 3 Mg Tab) 3 mg PO HS LEILA Stop: 03/14/24 21:59 Last Admin: 02/13/24 22:41 Dose: 3 mg Sodium Chloride (Sodium Chloride 0.65% Na Soln 45 Ml ([place])) 1 - 2 sprays NA PRN PRN PRN Reason: Nasal Dryness/Congestion Stop: 03/13/24 19:34 Vitamin D (Cholecalciferol 125 Mcg (5,000 Units) Tab) 125 mcg PO QAM LEILA Stop: 03/15/24 13:59 Mental Health & Subst Abuse Tx Psychiatrist Name of Psychiatrist: Joi Solis Psychiatrist's Date Of Appointment With Psychiatric Provider: 02/22/24 Time of Appointment with Psychiatrist: 2:50pm Psychiatric Appointment Comment: 1.5hr appt. Set up patient portal prior to appt (they will email you link) Therapist Name of Therapist: Heidi Shaulis [facility] Therapist's Date of Therapist Appointment: 02/14/24 1100 Post Discharge Appointments Primary Care Physician Name Of Family Doctor/PCP: Dr. Delma Carbone Other #1: Name of Aftercare Appointment: Student care and advocacy post hospitalization zoom meeting Phone Number of Aftercare Appointment: [phone] Date of Aftercare Appointment: 02/16/24 Time of Aftercare Appointment: 2PM Aftercare Appointment Comment: Zoom link will be sent to your [facility] email
[2024-02-14] MEDS: CHOLECALCIFEROL 125 MCG (5,000 UNITS) TAB PO SCH (14:33)
--- NOTE | 2024-02-15 09:30 | Discharge Summary ---
Date of Service February 15, 2024 History of Present Illness From initial consult note: "Patient reports Monday was a "normal day, nothing bad happened". At 2 AM she realized that schoolwork was due 3 days earlier than expected. She became anxious and fearful. She reports having some suicidal ideation and felt ambivalent about the situation. Then she took the remainder of the pills in her prescription bottle. Says she took "whatever meds fell out of her backpack". Said that it "happened fast without thought". She then went to sleep and the next day in the morning she felt terrible and asked her friend to take her to the hospital. She denies associated alcohol or drugs with the ingestion. On the way to the hospital her friend witnessed her having a 7- second seizure with 45 seconds of unconsciousness and EMS arrived. Reports prior to the incident was sleeping okay and had fair energy. Recently worse appetite and poor concentration. Has not been doing well in school. She feels after starting her antidepressant medication feels that her depression and anxiety have improved overall. She reports past impulsivity often breaking glasses and plates and going on shopping sprees. She presents some healed transverse cuts on her forearms and says she last cut herself before January. She is unsure of the drivers for self-harm. She complains of unstable emotions and it internal feelings of anger. Denies having abandonment reaction. Denies past episodes of decreased need for sleep with elevated mood, energy, goal directed activity. Denies past auditory visualizations. Reports family psychiatric history significant for paternal cousin with borderline personality disorder. Drinks alcohol once weekly with force ulcers. Smokes marijuana 3 times a week through weeping for sleep and creativity. Social history: Lives in apartment with roommate. From [employer] and parents live close by. Sees a masters level psychologist for therapy through [facility] counseling. Studying [employer] and is a "super senior". In a relationship with boyfriend and supportive." Today: The patient reports initially trying sertraline for 1 year and then became more anxious. She was switched to Lexapro and has been on it for 3 years. The dose was increased from 10 to 20 mg 1 year ago. Additionally was started on Wellbutrin 1 year ago. PCP has been managing medications. She reports feeling less anxious with Lexapro and Wellbutrin has been effective for energy. Says that she used to feel suicidal often and that is no longer happening however she feels more apathetic. She wants to have improved concentration and reduced impulsivity. She reports her recent attempt was a "spur of the moment" action. Complains that her mood fluctuates due to the situation. She reports historical panic attacks but none recently. She grew up in [place] with both her parents. Has one younger adopted brother from [facility] who has behavioral issues. She denies having any emotional neglect and denies emotional, physical, sexual abuse. Reports that mother and sister are anxious and her brother is likely depressed. Many members of paternal side has depression. Has been to 3 therapists in the past and the initial 2 were not helpful when they did CBT however current one is. Currently doing countertransference therapy as well. Physical Exam Mental Examination Appearance: Well Groomed Eye Contact: Fleeting Contact Motor Behavior: Unremarkable Speech: Delayed Mood: Euthymic and Calm Affect: Appropriate and Constricted Thought Process: Intact and Linear Thought Content: Intact Hallucinations: None Insight: Fair (to limited) Judgement: Poor (to limited) Vital Signs (Past 24 Hours) Last Vital Signs Temp 36.7 C 02/15/24 06:30 Pulse 87 02/15/24 06:31 Resp 16 02/15/24 06:30 BP 140/88 02/15/24 06:31 Pulse Ox 98 02/12/24 18:30 O2 Del Method Room Air 02/12/24 18:30 Principal Diagnosis Borderline Personality Disorder Psychiatric Data See daily stay summary. In short, safety was maintained and the patient was cooperative with care. Medication changes included restarting home lexapro 20mg, wellbutrin 150mg daily, Vit D 5000u daily and they tolerated this well. A family session was held and safety plan was completed prior to discharge. Patient presented recent overdose as an impulsive event 2/2 school stressor. She denied SI through her hospitalization and was future oriented to get help for Cluster B symptoms. She was restarted on her home medications (denied associated trauma from recent OD), and completed an intake for [facility]. Day of Discharge Assessment Today the patient voices readiness for discharge. They note improvement in mood and deny thoughts to harm self or others. Thoughts remain organized and they are improved from admission. There is no evidence of psychosis. They agree to take mediations as prescribed and keep follow-up appointments. They are stable for discharge to outpatient level of care. Transition of Care Transition Of Care Record: was reviewed with the patient Advance Directives Advance Directives Information Provided: No Advance Directives: No Mental Health Advance Directive: No Advance Directives on File: No Living Will: No Power of Surface Grinder: No Advance Directives Reason:: Declines as Mental Health Visit. Risk Factors Assessment Male: No : Yes Do You Have Access To A Gun?: No Health Problems: No Mental Health Diagnoses: Yes Substance Use Disorders: No Previous Attempt: No Family History of Suicide: No Previous Psychiatric Hospitalization: No Hopelessness: No Protective Factors Assessment Restorationist Beliefs: No : No Responsible for Young Children: No Employed: No Stable Relationships: Yes Supportive Family: Yes Good Rapport with Provider: Yes Absence of Any Risk Factors Above: No Discharge Data Lab Results 02/14/24 07:33 Estimat Average Glucose 114 Hemoglobin A1c 5.6 Triglycerides 174 H Cholesterol 219 H LDL Cholesterol, Calc 140 VLDL Cholesterol, Calc 35 H HDL Cholesterol 44 Cholesterol/HDL Ratio 5.0 Vitamin B12 305 25-OH Vitamin D Total 17.7 L TSH 1.960 Hospital Course (1) Intentional overdose of selective serotonin reuptake inhibitor (SSRI): (2) Borderline personality disorder: (3) MDD (major depressive disorder), recurrent episode: (4) JUAN (generalized anxiety disorder): (5) Vitamin D deficiency: Plan 02/14/2024: Increase Lexapro to 20 mg daily. Start Vit D 5000u daily. 02/13/2024: The patient was admitted to the [facility] ([facility] health unit) on q15 min checks (behavioral with suicide precautions) for safety. The patient will participate in group, recreational, and milieu therapies and will be offered additional individual and family sessions as clinically appropriate. -Repeat EKG. -Melatonin 3 mg at bedtime. -Restart home medications: Lexapro 10 mg daily and Wellbutrin 150 mg daily. -Labs: TSH, vitamin D, vitamin B12, fasting lipid panel, A1c. -Schneider Borderline PD screener Mental Health & Subst Abuse Tx Psychiatrist Name of Psychiatrist: Joi Solis Psychiatrist's Date Of Appointment With Psychiatric Provider: 02/22/24 Time of Appointment with Psychiatrist: 2:50pm Psychiatric Appointment Comment: 1.5hr appt. Set up patient portal prior to appt (they will email you link) Therapist Name of Therapist: [facility] Therapist's Date of Therapist Appointment: 02/14/24 1100 Post Discharge Appointments Primary Care Physician Name Of Family Doctor/PCP: Dr. Delma Carbone Other #1: Name of Aftercare Appointment: Student care and advocacy post hospitalization zoom meeting Phone Number of Aftercare Appointment: [phone] Date of Aftercare Appointment: 02/16/24 Time of Aftercare Appointment: 2PM Aftercare Appointment Comment: Zoom link will be sent to your [facility] email Contact Information Discharge Discharge Address: [address] [place] [id number] Discharge Plan Discharge Items Patient Disposition: Home - Self-Care Reason For Visit: MAJOR DEPRESSIVE DISORDER Discharge Diagnosis: (2) Borderline personality disorder: (3) MDD (major depressive disorder), recurrent episode, in full remission (4) JUAN (generalized anxiety disorder): (5) Vitamin D deficiency: Condition on Discharge: Fair Activity: Resume your previous activity Non-emergency contact: Primary Care Provider and Psychiatrist Call non-emergency contact if: you have any medication questions and your symptoms worsen Follow-up/Referrals: Rosio Abbott, PADeC [Primary Care Provider] - Diet: Regular Addtl Attending Provider Instructions: -Continue Lexapro 20mg daily -Continue Wellbutrin XL 150mg daily -Continue Vitamin D 5000 units daily. Follow-up with PCP in 3-6 months for updated Vitamin D level -[facility] -Avoid processed foods, simple sugars/starches, excess saturated fats. 10-20 minutes of exercise daily. For mind and body. Pending Studies at Discharge: No Stand-Alone Forms: [employer] Smoking Cessation Medications and DC Order Prescriptions: New melatonin 3 mg Tablet 3 mg PO HS Qty: 30 0RF escitalopram oxalate 20 mg Tablet 20 mg PO DAILY Qty: 30 0RF bupropion HCl 150 mg Tablet Extended Release 24 Hr 150 mg PO DAILY Qty: 30 0RF cholecalciferol (vitamin D3) 125 mcg (5,000 unit) Tablet 125 mcg PO QAM Qty: 30 0RF Continued norethindrone ac-eth estradiol [ (21)] 1.5-30 mg-mcg tablet 1 tab PO DAILY escitalopram oxalate 20 mg tablet 20 mg PO DAILY bupropion HCl 150 mg tablet extended release 24 hr 150 mg PO DAILY Discharge Orders: Discharge Order (Routine); Ordered 02/15/24 Ordered By: Giorgio Moya Admission Data Admit Date/Time: 02/12/24 18:29 Attending Provider: Giorgio Moya Admit Provider: Giorgio Moya Primary Care Provider: Rosio Abbott C[place] [address] D/C day mgmt > 30 min Patient Type Established History Detailed Exam Detailed Medical Decision Making Moderate Complexity Diagnoses Intentional overdose of selective serotonin reuptake inhibitor (SSRI) T43.222A Borderline personality disorder F60.3 MDD (major depressive disorder), recurrent episode F33.9 JUAN (generalized anxiety disorder) F41.1 Vitamin D deficiency E55.9
[2024-02-15] MEDS: ESCITALOPRAM OXALATE 20 MG TAB PO SCH (10:06)
[2024-02-15 11:46] VITALS: BP 139/85; PULSE 96
== END 2024-02-15 13:05 | disposition home or self-care (01) | DRG 883 ==
LOC: 3S 18:29